=== PATIENT | female | born 1965 | race Two or more races ===

== ENCOUNTER → 2016-10-23 | Outpatient (CLI) | payer MEDICARE, OTHER ==
[2016-05-13 13:37] VITALS: BP 125/76
[~2016-10-23] MED LIST: ALBU1.25 NEB; ALBU8.5H8 INH; ASPI1TAB55 PO; AZIT250T6 PO; BENZ100C PO; BISM262O20 PO; CALC500T PO; CYAN10002 IM; FOLI1TAB16 PO; GUAI120L35 PO; HYDR-2758 PO; HYDR1TAB10 PO; LEVO5TAB2 PO; MONT10TA6 PO; MULT1TAB52 PO; NAPR500T3 PO; PROG100C15 PO; PROGESTERONE; PSEU120T58 PO; ROPI0.252 PO; SERT50TA PO; THYR60TA PO; VITA1TAB3 PO; losartan; ropinirole; testosterone inj; vitamin B-12
--- NOTE | 2016-10-23 12:27 | RAD ---
DATE: 10/23/2016 EXAM: MAMMO DARION JODI BILAT, BREAST BILATERAL HISTORY: Left breast lumps felt by the patient at the 3 to 5:00 position of the breast. COMPARISON: 11/17/2013 This study was interpreted with the benefit of Computerized Aided Detection (CAD). FINDINGS: Breast Density: DENSE The breast Parenchyma is dense, which could reduce the sensitivity of mammography. Breast parenchyma level density D.. The areas of concern in the left breast were marked. There is a well-defined density in the right breast at approximately the 7:00 position. It appears similar on the cc view compared to the previous exam. There is also probably similar in appearance on the MLO there are scattered benign-appearing calcifications in the breasts. A dominant clustered group of calcifications, warranting biopsy is not seen. A definite mass is not seen in the left breast corresponding to the marked areas of clinical concern. The extreme density of the breasts, however, could easily obscure a mass. Bilateral breast ultrasound was performed. The examination of the right breast was targeted to the 7:00 position where a well-defined mass was seen on mammography. There are multiple cysts at the 7:00 position. The largest measures approximately 9 mm in greatest dimension. A dominant suspect or suspicious soft tissue mass is not seen. Targeted ultrasound of the left breast was also performed the examination of the left breast was targeted to the areas where there was a palpable concern. Similar to the right breast several cysts are seen. The largest mass in the right breast measures approximately 1.6 cm. IMPRESSION: No dominant soft tissue mass is seen in either breast. There are several cysts seen in both breasts. Because of the extreme density in the breasts an MRI examination should be considered. If there is a discrete, palpable, mass in either breast biopsy may be warranted despite central unremarkable imaging. BI-RADS CATEGORY: 2 BENIGN FINDING(S) ultrasound mammographic features are benign. MRI should be considered. RECOMMENDED FOLLOW-UP: 12M 12 MONTH FOLLOW-UP. MRI prior to any follow-up mammographic imaging should be considered PQRS compliance statement: Patient information was entered into a reminder system with a target due date 10/23/2017. Prior to that date and MRI examination of the breasts is recommended for the next mammogram. Mammography is a sensitive method for finding small breast cancers, but it does not detect them all and is not a substitute for careful clinical examination. A negative mammogram does not negate a clinically suspicious finding and should not result in delay in biopsying a clinically suspicious abnormality. "Our facility is accredited by the [employer] Mammography Program."
== END | disposition home or self-care (01) ==
LOC: MAMMO 10:00
PROVIDERS: ATTEND Physician Assistant
DX: N63 Unspecified lump in breast (principal)
CPT/HCPCS: 76641; G0204; G0279; 77062; 77066

== ENCOUNTER → 2016-12-09 | Outpatient (CLI) | payer MEDICARE, OTHER ==
[2016-05-13 13:37] VITALS: BP 125/76
--- NOTE | 2016-12-09 16:07 | RAD ---
Indication pain. No history of injury. Internally and externally rotated views of both shoulders as well as Y views were obtained. Views of the left shoulder show no significant glenohumeral degenerative changes or before meals degenerative changes. There is some slight sclerosis of the humeral head. Osteonecrosis is not excluded. An acute finding is not seen. Healed left posterior fourth rib fracture is noted. Views of the right shoulder appear unremarkable. No bony abnormality is seen. IMPRESSION: Mild sclerotic changes involving the left humeral head. No acute finding seen involving either shoulder
== END | disposition home or self-care (01) ==
LOC: DXRAD 15:20
PROVIDERS: ATTEND Anesthesiology Pain Medicine
DX: M19.012 Primary osteoarthritis, left shoulder (principal)
CPT/HCPCS: 73030

== ENCOUNTER → 2017-08-03 | Outpatient (CLI) | payer MEDICARE, OTHER ==
[2016-05-13 13:37] VITALS: BP 125/76
[~2017-08-03] MED LIST changes: +NAPR-514 PO; -NAPR500T3 PO
--- NOTE | 2017-08-03 14:24 | CARD ---
MR#: [id number] Date of Study: 08/03/2017 Ordering Physician: YELENA MONTESINOS, Referring Physician: YELENA MONTESINOS, Tech: ASH Moulton APPROVED REPORT EXAM: Two-dimensional and M-mode echocardiogram with Doppler and color Doppler. Other Information Quality : Good INDICATION Pedal Edema 2D DIMENSIONS Left Atrium(2D)4.2 (1.6-4.0cm)IVSd1.0 (0.7-1.1cm) Aortic Root(2D)2.2 (2.0-3.7cm)LVDd4.3 (3.9-5.9cm) LVOT Diameter1.8 (1.8-2.4cm)PWd1.1 (0.7-1.1cm) LVDs3.1 (2.5-4.0cm)FS (%) 26.0 % SV46.0 mlLVEF(%)60.0 (>50%) Aortic Valve AoV Peak Jonathan.207.4cm/Chiquis Peak GR.17.2mmHg LVOT Peak Jonathan.84.0cm/sAVA (VMAX)1.07cm2 Tricuspid Valve TR P. Wamaqgof536qs/sRAP [id number] TR Peak Gr.01drGkHINP18imCt LEFT VENTRICLE The left ventricle is normal size. There is normal left ventricular wall thickness. The left ventricu lar systolic function is normal. The Ejection Fraction is 60-65%. There is normal LV segmental wall m otion. RIGHT VENTRICLE The right ventricle is normal size. There is normal right ventricular wall thickness. The right ventr icular systolic function is normal. ATRIA The left atrium is mildly dilated. The right atrium size is normal. There is a moderate to large PFO vs ASD. AORTIC VALVE The aortic valve is trileaflet. Doppler and Color Flow revealed no significant aortic regurgitation. There is no significant aortic valvular stenosis. MITRAL VALVE The mitral valve is normal in structure and function. There is no mitral valve stenosis. Doppler and Color-flow revealed trace to mild mitral regurgitation. TRICUSPID VALVE Doppler and Color Flow revealed mild to moderate tricuspid regurgitation. There is moderate pulmonary hypertension. The PASP is 56 mmHg. There is no tricuspid valve stenosis. PULMONIC VALVE The pulmonic valve is not well visualized. Doppler and Color Flow revealed no pulmonic valvular regur gitation. There is no pulmonic valvular stenosis. GREAT VESSELS The aortic root is normal in size. The IVC is normal in size and collapses >50% with inspiration. PERICARDIAL EFFUSION There is no pleural effusion. There is no evidence of significant pericardial effusion. Critical Notification Critical Value: No <Conclusion> The left ventricular systolic function is normal. The Ejection Fraction is 60-65%. There is normal LV segmental wall motion. Trace to mild mitral regurgitation. Mild to moderate tricuspid regurgitation. There is moderate pulmonary hypertension. The PASP is 56 mmHg. There is no evidence of significant pericardial effusion. Signed by : Isaiah Lozoya, Electronically Approved : 08/03/2017 14:23:30
== END | disposition home or self-care (01) ==
LOC: ECHO 12:46
PROVIDERS: ATTEND Physician Assistant
DX: R60.0 Localized edema (principal); I08.1 Rheumatic disorders of both mitral and tricuspid valves; I10 Essential (primary) hypertension; E03.9 Hypothyroidism, unspecified; E87.6 Hypokalemia; J32.9 Chronic sinusitis, unspecified; I27.20 Pulmonary hypertension, unspecified
CPT/HCPCS: 93306

== ENCOUNTER 2017-08-10 11:21 | Emergency (ER) | payer MEDICARE, OTHER ==
[~2017-08-10] VITALS: Ht 152.4 cm; Wt 49.9 kg
--- NOTE | 2017-08-10 12:02 | PHYS DOC ---
Past History Past Medical History: Anxiety, Asthma, Depression, Hypothyroid, Sickle Cell Disease, Other Past Surgical History: Cholecystectomy, , Oophorectomy, Tonsillectomy , Other Alcohol Use: None Drug Use: None Adult General Chief Complaint Chief Complaint: MECHANICAL FALL [facility] HPI She is a pleasant 51-year-old female with a known history of hypertension, prior sickle cell disease, depression, anxiety, anemia who presents with a mechanical fall from standing. Patient was walking down a flight of stairs when she noticed some sushant she was going to attend to when she lost her footing and slipped. There is a questionable loss of consciousness on the scene where she landed on her bottom grating and discomfort in her lower lower back her ribs bilaterally and the back of her head. Patient felt dizzy when she stood up quickly but she denied any focal focal numbness or tingling or weakness in her 70s. Patient denies any persistent headache although she has mild ache in the back of her neck over the C-spine. Patient denies any shortness of breath although it does hurt her chest wall to move over her ribs right greater than left. There is no obvious deformity oriented to the patient and no bruising that she noted. She said her main complaint is pain over her coccyx regions which is described as sharp and stabbing 8 of 10. She is not taking any medications for her pain but [facility]. She denies any bowel or bladder incontinence, denies any pain radiating to her bottom of her lower legs. Her pain is worse with range of motion sitting on her coccyx. Review of Systems Review of Systems Constitutional: Denies fever or chills [] Eyes: Denies change in visual acuity, redness, or eye pain [] HENT: Denies nasal congestion or sore throat [] Respiratory: Denies cough or shortness of breath [] Cardiovascular: No additional information not addressed in HPI [] GI: Denies abdominal pain, nausea, vomiting, bloody stools or diarrhea [] : Denies dysuria or hematuria [] Musculoskeletal: Positive for back pain positive for hip pain, positive for rib pain bilaterally over the lower ribs acid for neck pain Integument: Denies rash or skin lesions [] Neurologic: Mild posterior headache with no focal weakness or sensory changes. She has a complaint of mild dizziness with change in posture. Endocrine: Denies polyuria or polydipsia [] All other systems were reviewed and found to be within normal limits, except as documented in this note. Current Medications Current Medications Current Medications Medications (Trade) Dose Ordered Sig/Jovon Start Time Stop Time Status Last Admin Dose Admin Verapamil HCl (Verapamil HCl) 10 mg 1X ONCE 08/10/17 12:00 08/10/17 12:01 UNV Allergies Allergies Allergies Coded Allergies Type Severity Reaction Last Updated Verified fentanyl Adverse Reaction Severe SI 08/10/17 Yes Physical Exam Physical Exam Other vital signs recorded the chart patient noted to be orthostatic with an increase her heart rate and lower blood pressure with standing from a supine position. Patient was symptomatic during this transition. Constitutional: Well developed, well nourished, she is uncomfortable but in no acute distress.. [] HENT: Normocephalic, atraumatic, bilateral external ears normal, oropharynx moist, no oral exudates, nose normal. No obvious signs of scalp trauma, no hematoma no bleeding no evidence of skull fracture. Patient's TMs are clear bilaterally with no evidence of hemotympanum no evidence of basilar skull fracture.[] Eyes: PERRLA, EOMI, conjunctiva normal, no discharge. [] Neck: Normal range of motion, I'll tenderness over the lower C-spine C5 C6 C7 with nothing midline although there are some over her trapezius muscle there is no obvious signs of trauma no ecchymosis or soft tissue swelling., supple, no stridor. [] Cardiovascular:Heart rate regular rhythm, no murmur []she has chest wall tenderness over the lower ribs on the right specifically rib 9/10/11 greater on the right than the left with no obvious signs of crepitus no paroxysmal chest wall movement. Lungs & Thorax: Bilateral breath sounds clear to auscultation [] Abdomen: Bowel sounds normal, soft, no tenderness, no masses, no pulsatile masses. [] Skin: Warm, dry, no erythema, no rash. [] Back: tenderness to palpation over the coccyx region with no midline tenderness palpation over the L-spine except for L4-L5 there is some small ecchymosis noted on the gluteal region above the left gluteal cheek. Extremities: No tenderness, no cyanosis, no clubbing, ROM intact, no edema. [] Neurologic: Alert and oriented X 3, normal motor function, normal sensory function, no focal deficits noted. [] Psychologic: Affect normal, judgement normal, mood normal. [] EKG EKG [] Radiology/Procedures Radiology/Procedures [] [address] [address] IMAGING REPORT Signed PATIENT: JERRY OSBORNE ACCOUNT: [id number] : 1965 LOCATION: ER AGE: 51 SEX: F EXAM STATUS: REG ER ORD. PHYSICIAN: JOAN CERRATO MD REASON: fall PROCEDURE: CT HEAD AND CERVICAL SPINE WO CT head without intravenous contrast History: Fall down stairs today. Comparison: None. Technique: Axial images are obtained of the head from the skull base through the vertex without IV contrast. Exposure: One or more of the following individualized dose reduction techniques were utilized for this examination: 1. Automated exposure control 2. Adjustment of the mA and/or kV according to patient size 3. Use of iterative reconstruction technique Findings: The ventricles are appropriate in size, shape, and location for the patient's age. No obvious intracranial mass, mass-effect, midline shift, hemorrhage or obvious acute infarction is identified. Basilar cisterns are patent. Bone windows demonstrate no acute calvarial abnormality. The visualized paranasal sinuses appear clear. Impression: 1. No acute intracranial process. CT cervical spine Comparison: None. Technique: Noncontrast CT of the cervical spine was performed using helical technique. Axial, sagittal, coronal reconstructions were obtained. Exposure: One or more of the following individualized dose reduction techniques were utilized for this examination: 1. Automated exposure control 2. Adjustment of the mA and/or kV according to patient size 3. Use of iterative reconstruction technique Findings: There is no evidence of acute fracture or acute malalignment involving the cervical spine. No prevertebral soft tissue swelling is identified. Mild multilevel degeneration is seen. There are increased numbers of bilateral neck lymph nodes with the largest lymph node measuring 0.8 cm in short axis, not definitely pathologic by CT criteria. Impression: 1. No evidence of acute traumatic injury involving the cervical spine. 2. Increased numbers of bilateral neck lymph nodes. Recommend clinical correlation. Electronically signed by: Shaheed Thompson MD (08/10/2017 12:37 PM) [facility] DICTATED AND SIGNED BY: SHAHEED THOMPSON MD DATE: 08/10/17 1232 CC: JOAN CERRATO MD; YELENA MONTESINOS ~ [address] [address] IMAGING REPORT Signed PATIENT: JERRY OSBORNE ACCOUNT: [id number] : 1965 LOCATION: ER AGE: 51 SEX: F EXAM STATUS: REG ER ORD. PHYSICIAN: JOAN CERRATO MD REASON: fall PROCEDURE: CT LUMBAR SPINE WO CONTRAST CT of the lumbar spine without contrast 08/10/2017 Indication: Fall downstairs Comparison study: CT of the abdomen and pelvis February 02, 2013 Technique: Multidetector CT imaging of the lumbar spine without the administration of intravenous contrast. Findings: No evidence of acute fracture or alignment abnormality is identified. Chronic compression deformities of the L3, L4, and L5 vertebral bodies noted. Superior endplate compression deformity of the S1 vertebra also seen. The appearance however similar comparison CT of the abdomen and pelvis from February 19, 2013. There appears to be diffuse severe osteopenia which is similar to comparison study. No bony encroachment of the spinal canal is identified. Facet joints are aligned. No spondylolysis or significant spondylolisthesis is identified. Mild posterior disc bulges are seen at L3-L4, L4-L5, and L5-S1. No overt neural foraminal stenosis is appreciated by CT. No acute soft tissue changes are identified. Impression: 1. No evidence of acute fracture or alignment abnormality is identified 2. Similar appearance of 3 chronic compression deformities involving L3, L4, and L5 3. Osteopenia. Consider follow-up bone densitometry 4. Mild degenerative changes of the lumbar spine as described. DICTATED AND SIGNED BY: YASMIN KHOURY MD DATE: 08/10/17 1241 CC: JOAN CERRATO MD; YELENA MONTESINOS ~ [address] [address] IMAGING REPORT Signed PATIENT: JERRY OSBORNE ACCOUNT: [id number] : 1965 LOCATION: ER AGE: 51 SEX: F EXAM STATUS: REG ER ORD. PHYSICIAN: JOAN CERRATO MD REASON: fall PROCEDURE: RIBS BILAT & PA CXR 4+V Rib series including frontal chest radiograph and 2 views of each hemithorax 08/10/2017 Indication: Fall, pain. Comparison study: 2 views of the chest May 13, 2016 Findings: The heart is mildly enlarged but stable. No pneumothorax or pleural effusion is identified. Right basilar scarring with blunting of the hemidiaphragm is stable. No acute or displaced rib fractures are identified. Chronic deformity of the left fourth rib noted. No new focal infiltrate is seen. Inferior thoracic compression deformities are stable Impression: No evidence of acute cardiopulmonary process. No radiographic evidence of an acute rib fracture is identified DICTATED AND SIGNED BY: YASMIN KHOURY MD DATE: 08/10/17 1249 CC: JOAN CERRATO MD; YELENA MONTESINOS ~ Course & Med Decision Making Course & Med Decision Making Pertinent Labs and Imaging studies reviewed. (See chart for details) []She is a pleasant 51-year-old female with a known history of sickle cell disease who had a mechanical fall from standing injuring her lower back/coccyx regions and her ribs bilaterally. She was given pain medications to facilitate exam as well as x-rays. Patient's CT scans of her lumbar spine cervical spine and head were read by radiology reviewed by me the only injury notified was a chronic series of small compression fracture of L3 L4 L5 which is not new. Patient's rib series reviewed by me read by radiology deficits no acute pulmonary contusion or fracture is noted by x-ray. There is no pneumomediastinum or pneumothorax. Patient sustained a coccyx bruise and rib contusions but no broken bones. I will provide her pain medications and encouraged follow-up with her primary care doctor doubt with her symptoms. I will refer her back to her primary care doctor to have her talk with Linn octavio about possible kyphoplasty if her chronic lower back pain presently gets worse with the noted chronic compression fractures of L3-L5 Impression: Fall from standing coccyx contusion, bilateral rib contusions, compression fractures of L3-L5 chronic in nature discharge: I've spoken with the patient and/or caregivers. I've explained the patient's condition, diagnosis and treatment plan based on information available to me at this time. I've answered the patient's and/or caregivers questions and addressed any concerns. The patient and/or caregivers have a good understanding the patient's diagnosis, condition and treatment plan as can be expected at this point. Vital signs have been stabilized. The patient's condition is stable for discharge from the emergency department. The patient will pursue further outpatient evaluation with her primary care provider or other designated consulting physician as outlined in the discharge instructions. Patient and/or caregivers are agreeable to this plan of care and follow-up instructions have been explained in detail. The patient and/or caregivers have received these instructions in written format and expressed understanding of these discharge instructions. The patient and her caregivers are aware that if any significant change in condition or worsening of symptoms should prompt him to immediately return to this of the closest emergency department. If an emergent department is not readily available I would encourage him to call 911. Dragon Disclaimer Dragon Disclaimer This electronic medical record was generated, in whole or in part, using a voice recognition dictation system. Departure Departure: Impression: Primary Impression: Chronic pain Additional Impressions: Coccyx contusion Rib contusion Compression fracture Disposition: HOME, SELF-CARE Condition: STABLE Referrals: YELENA MONTESINOS (PCP) Patient Instructions: Back, Compression Fracture, Chest Contusion, Contusion, Quadriceps Contusion, [id number] Additional Instructions: discharge: I've spoken with the patient and/or caregivers. I've explained the patient's condition, diagnosis and treatment plan based on information available to me at this time. I've answered the patient's and/or caregivers questions and addressed any concerns. The patient and/or caregivers have a good understanding the patient's diagnosis, condition and treatment plan as can be expected at this point. Vital signs have been stabilized. The patient's condition is stable for discharge from the emergency department. The patient will pursue further outpatient evaluation with her primary care provider or other designated consulting physician as outlined in the discharge instructions. Patient and/or caregivers are agreeable to this plan of care and follow-up instructions have been explained in detail. The patient and/or caregivers have received these instructions in written format and expressed understanding of these discharge instructions. The patient and her caregivers are aware that if any significant change in condition or worsening of symptoms should prompt him to immediately return to this of the closest emergency department. If an emergent department is not readily available I would encourage him to call 911. Scripts Hydrocodone Bit/Acetaminophen (HYDROCODONE-APAP 5-325 ) 1 Each Tablet 1 TAB PO PRN Q6HRS Y for PAIN for 3 Days, #12 TAB 0 Refills Prov: JOAN CERRATO MD 08/10/17 Problem Qualifiers JOAN CERRATO MD Aug 10, 2017 12:02
[2017-08-10] MEDS ORDERED: VERAPAMIL 5 MG/2 ML VIAL. IV ONE (12:30)
[2017-08-10] MEDS: HYDROcodone/APAP 5/325MG 1 TAB TABLET PO ONE (12:31)
--- NOTE | 2017-08-10 12:40 | RAD ---
CT head without intravenous contrast History: Fall down stairs today. Comparison: None. Technique: Axial images are obtained of the head from the skull base through the vertex without IV contrast. Exposure: One or more of the following individualized dose reduction techniques were utilized for this examination: 1. Automated exposure control 2. Adjustment of the mA and/or kV according to patient size 3. Use of iterative reconstruction technique Findings: The ventricles are appropriate in size, shape, and location for the patient's age. No obvious intracranial mass, mass-effect, midline shift, hemorrhage or obvious acute infarction is identified. Basilar cisterns are patent. Bone windows demonstrate no acute calvarial abnormality. The visualized paranasal sinuses appear clear. Impression: 1. No acute intracranial process. CT cervical spine Comparison: None. Technique: Noncontrast CT of the cervical spine was performed using helical technique. Axial, sagittal, coronal reconstructions were obtained. Exposure: One or more of the following individualized dose reduction techniques were utilized for this examination: 1. Automated exposure control 2. Adjustment of the mA and/or kV according to patient size 3. Use of iterative reconstruction technique Findings: There is no evidence of acute fracture or acute malalignment involving the cervical spine. No prevertebral soft tissue swelling is identified. Mild multilevel degeneration is seen. There are increased numbers of bilateral neck lymph nodes with the largest lymph node measuring 0.8 cm in short axis, not definitely pathologic by CT criteria. Impression: 1. No evidence of acute traumatic injury involving the cervical spine. 2. Increased numbers of bilateral neck lymph nodes. Recommend clinical correlation. Electronically signed by: Shaheed Harry MD (08/10/2017 12:37 PM) [facility]
--- NOTE | 2017-08-10 12:48 | RAD ---
CT of the lumbar spine without contrast 08/10/2017 Indication: Fall downstairs Comparison study: CT of the abdomen and pelvis February 02, 2013 Technique: Multidetector CT imaging of the lumbar spine without the administration of intravenous contrast. Findings: No evidence of acute fracture or alignment abnormality is identified. Chronic compression deformities of the L3, L4, and L5 vertebral bodies noted. Superior endplate compression deformity of the S1 vertebra also seen. The appearance however similar comparison CT of the abdomen and pelvis from February 19, 2013. There appears to be diffuse severe osteopenia which is similar to comparison study. No bony encroachment of the spinal canal is identified. Facet joints are aligned. No spondylolysis or significant spondylolisthesis is identified. Mild posterior disc bulges are seen at L3-L4, L4-L5, and L5-S1. No overt neural foraminal stenosis is appreciated by CT. No acute soft tissue changes are identified. Impression: 1. No evidence of acute fracture or alignment abnormality is identified 2. Similar appearance of 3 chronic compression deformities involving L3, L4, and L5 3. Osteopenia. Consider follow-up bone densitometry 4. Mild degenerative changes of the lumbar spine as described.
--- NOTE | 2017-08-10 12:53 | RAD ---
Rib series including frontal chest radiograph and 2 views of each hemithorax 08/10/2017 Indication: Fall, pain. Comparison study: 2 views of the chest May 13, 2016 Findings: The heart is mildly enlarged but stable. No pneumothorax or pleural effusion is identified. Right basilar scarring with blunting of the hemidiaphragm is stable. No acute or displaced rib fractures are identified. Chronic deformity of the left fourth rib noted. No new focal infiltrate is seen. Inferior thoracic compression deformities are stable Impression: No evidence of acute cardiopulmonary process. No radiographic evidence of an acute rib fracture is identified
[2017-08-10] MEDS ORDERED: HYDR-2758 PO (13:02)
[2017-08-10 13:16] VITALS: BP 129/76
== END 2017-08-10 13:16 | disposition home or self-care (01) ==
LOC: ER 11:21
DX: S32.038A Other fracture of third lumbar vertebra, initial encounter for closed fracture (principal); S32.048A Other fracture of fourth lumbar vertebra, initial encounter for closed fracture; S32.058A Other fracture of fifth lumbar vertebra, initial encounter for closed fracture; S30.0XXA Contusion of lower back and pelvis, initial encounter; S20.212A Contusion of left front wall of thorax, initial encounter; S20.211A Contusion of right front wall of thorax, initial encounter; J45.909 Unspecified asthma, uncomplicated; I10 Essential (primary) hypertension; G89.29 Other chronic pain; F41.9 Anxiety disorder, unspecified; F32.9 Major depressive disorder, single episode, unspecified; E03.9 Hypothyroidism, unspecified; Z86.73 Personal history of transient ischemic attack (TIA), and cerebral infarction without residual deficits; Z88.8 Allergy status to other drugs, medicaments and biological substances; W10.8XXA Fall (on) (from) other stairs and steps, initial encounter; Y93.89 Activity, other specified; Y99.8 Other external cause status; Y92.813 Airplane as the place of occurrence of the external cause
CPT/HCPCS: 70450; 71111; 72125; 72131; 99284-25

== ENCOUNTER → 2017-08-13 | Outpatient (CLI) | payer MEDICARE, OTHER ==
[2017-08-10 13:16] VITALS: BP 129/76
[~2017-08-13] MED LIST changes: +BUPIVACAINE MPF 0.25% 10 ML VIAL. ONE
== END | disposition home or self-care (01) ==
LOC: SURG 10:05
PROVIDERS: ATTEND Anesthesiology Pain Medicine
DX: M79.1 Myalgia (principal); I27.20 Pulmonary hypertension, unspecified; Z98.890 Other specified postprocedural states
CPT/HCPCS: 20553; J3490

== ENCOUNTER → 2017-09-10 | Outpatient (CLI) | payer MEDICARE, OTHER ==
[~2017-09-10] MED LIST changes: +LIDOCAINE 1% PF 30 ML VIAL. ONE; +methylPREDNISolone ACETATE 40 MG/ML VIAL. ONE
== END | disposition home or self-care (01) ==
LOC: SURG 10:07
PROVIDERS: ATTEND Anesthesiology Pain Medicine
DX: M79.1 Myalgia (principal); D64.9 Anemia, unspecified; I27.20 Pulmonary hypertension, unspecified; E03.9 Hypothyroidism, unspecified; F32.9 Major depressive disorder, single episode, unspecified; I10 Essential (primary) hypertension; Z88.8 Allergy status to other drugs, medicaments and biological substances; Z98.890 Other specified postprocedural states; Z79.82 Long term (current) use of aspirin
CPT/HCPCS: 20553; J1030; J2001; J3490

== ENCOUNTER → 2017-10-22 | Outpatient (CLI) | payer MEDICARE, OTHER ==
[~2017-10-22] MED LIST changes: -BUPIVACAINE MPF 0.25% 10 ML VIAL. ONE; +IOHEXOL 300 MG/ML 75 ML VIAL. IV ONE; -LIDOCAINE 1% PF 30 ML VIAL. ONE; -methylPREDNISolone ACETATE 40 MG/ML VIAL. ONE
--- NOTE | 2017-10-22 13:11 | RAD ---
EXAM: CT angiography of the chest with intravenous contrast. HISTORY: Pulmonary artery hypertension. TECHNIQUE: Computed tomographic images of the chest were obtained following the administration of 75 cc Omnipaque 300 intravenous contrast according to angiography protocol. Multiplanar reformatting was performed and 3-dimensional maximum intensity projection images were obtained. *One or more of the following individualized dose reduction techniques were utilized for this examination: 1. Automated exposure control. 2. Adjustment of the mA and/or kV according to patient size. 3. Use of iterative reconstruction technique. COMPARISON: None. FINDINGS: There is mild to moderate cardiomegaly. There is a trace pericardial effusion or slight pericardial thickening. The aorta is normal in caliber and demonstrates a normal branching pattern. There are enlarged central pulmonary vessels suggesting a component of chronic pulmonary artery hypertension. No pulmonary embolism is seen. There is increased soft tissue within the anterior mediastinum, possibly due to thymic rebound/hyperplasia. There is bilateral supraclavicular and axillary lymphadenopathy. For reference purposes, there is a right axillary lymph node measuring 1.4 cm in long axis. No pathologically enlarged mediastinal or hilar lymph node is seen. There is no pneumothorax or pleural effusion. There is minimal bilateral posterior dependent and basilar atelectasis. There is no infiltrate or suspicious pulmonary nodule. There is mild hepatomegaly. The spleen is absent. There are few small soft tissue nodules within the left upper quadrant which appears separate from the pancreas, possibly due to a splenules. There is slight nodular thickening of the left adrenal gland. There are degenerative changes within the spine. There are multiple chronic compression fractures and endplate depressions throughout the thoracic spine. There is suspected bone demineralization. There is angulation of the sternum which is likely developmental rather than due to a healed fracture. IMPRESSION: 1. Enlarged central pulmonary vessels suggesting a component of chronic pulmonary artery hypertension. This is not significantly changed compared to the prior study. 2. Cardiomegaly with trace pericardial effusion or pericardial thickening, also stable in appearance. 3. Supraclavicular and axillary lymphadenopathy. Similar to slightly increased compared to the prior study. The possibility of an underlying neoplasm such as lymphoma is not excluded. 4. Stable prominent soft tissue within the anterior mediastinum. This may be due to lymphatic tissue or thymic hyperplasia/rebound. 5. Hepatomegaly. 6. Multiple chronic vertebral compression fractures and endplate depressions. Correlate for bone demineralization or renal osteodystrophy. Electronically signed by: Ryann Santos MD (10/22/2017 1:07 PM) [place] [id number]
== END | disposition home or self-care (01) ==
LOC: CT 08:37
PROVIDERS: ATTEND Internal Medicine Critical Care Medicine
DX: I27.20 Pulmonary hypertension, unspecified (principal); I51.7 Cardiomegaly; M84.48XD Pathological fracture, other site, subsequent encounter for fracture with routine healing; E03.9 Hypothyroidism, unspecified; I10 Essential (primary) hypertension; R16.0 Hepatomegaly, not elsewhere classified
CPT/HCPCS: 71275; Q9967

== ENCOUNTER → 2017-12-08 | Outpatient (CLI) | payer MEDICARE, OTHER ==
[~2017-12-08] MED LIST changes: -IOHEXOL 300 MG/ML 75 ML VIAL. IV ONE
--- NOTE | 2017-12-21 09:08 | RAD ---
DATE: 12/08/2017 EXAM: MAMMO DARION SCREENING BILATERAL HISTORY: Routine screening COMPARISON: 10/23/2016 This study was interpreted with the benefit of Computerized Aided Detection (CAD). The breast parenchyma is dense, which could reduce the sensitivity of mammography. Breast parenchyma level density D. FINDINGS: 2-D and 3-D tomosynthesis imaging was performed in CC and MLO projections. The breast tissues are extremely dense and heterogeneous. There is an unchanged small lymph node type density in the lateral aspect of the right breast. Previous ultrasound examination demonstrated bilateral breast cysts. No new or enlarging breast densities are seen. There are numerous microcalcifications in both breasts with the distribution suggesting a benign etiology such as sclerosing adenosis. No suspicious microcalcifications are evident. IMPRESSION: 1. Extremely dense heterogeneous breasts. 2. Stable mammograms without evidence of malignancy. BI-RADS CATEGORY: 2 BENIGN FINDING(S) RECOMMENDED FOLLOW-UP: 12M 12 MONTH FOLLOW-UP PQRS compliance statement: Patient information was entered into a reminder system with a target due date for the next mammogram. Mammography is a sensitive method for finding small breast cancers, but it does not detect them all and is not a substitute for careful clinical examination. A negative mammogram does not negate a clinically suspicious finding and should not result in delay in biopsying a clinically suspicious abnormality. "Our facility is accredited by the [employer] Mammography Program."
== END | disposition home or self-care (01) ==
LOC: MAMMO 15:11 → MERGE 15:11
PROVIDERS: ATTEND Physician Assistant
DX: Z12.31 Encounter for screening mammogram for malignant neoplasm of breast (principal); I10 Essential (primary) hypertension; E03.9 Hypothyroidism, unspecified; E87.6 Hypokalemia; Z90.49 Acquired absence of other specified parts of digestive tract; Z90.89 Acquired absence of other organs; Z79.82 Long term (current) use of aspirin; Z86.2 Personal history of diseases of the blood and blood-forming organs and certain disorders involving the immune mechanism
CPT/HCPCS: 77063; 77067

== ENCOUNTER → 2018-03-18 | Outpatient (CLI) | payer MEDICARE, OTHER ==
[~2018-03-18] MED LIST changes: -ROPI0.252 PO; +ROPI0.254 PO
--- NOTE | 2018-03-18 17:41 | RAD ---
CT CHEST WO CONTRAST Indication: PULMONARY HYPERTENSION Exposure: One or more of the following individualized dose reduction techniques were utilized for this examination: 1. Automated exposure control 2. Adjustment of the mA and/or kV according to patient size 3. Use of iterative reconstruction technique. Comparison: Contrast enhanced exam of October 22, 2017 Contrast: None FINDINGS: Vascular structures: Limited exam without contrast. No evidence of thoracic aortic aneurysm. Mild enlargement of the main central pulmonary arteries, unchanged. Lymph nodes: Enlarged axillary lymph nodes are again identified bilaterally. One of the right axillary lymph nodes measures 10 mm short axis compared with 11 mm on prior study. One of the left axillary lymph nodes measures 11 mm short axis, compared with 11 mm on prior study. Mildly enlarged supraclavicular lymph nodes appears stable. Mild tissue in the anterior mediastinum has not progressed. Thyroid gland:Visualized aspect is unremarkable. Heart: Mild pericardial effusion, probably unchanged since prior study. There appears to be a slightly different distribution of fluid but the overall amount is probably similar. Esophagus: Unremarkable Pleural spaces: No significant effusion Lungs: No dominant airspace consolidation or large mass. Trachea and central airways: Patent Spine: Multiple central endplate compression fracture deformities of the thoracic spine are stable since the previous examination. Bones: Generalized bone demineralization. This likely accounts for a heterogeneous appearance of skeletal structures diffusely. If the patient has a history of primary malignancy, consider bone scan, however, to exclude metastatic process. Breasts are very dense bilaterally. Upper abdomen: Slices obtained through the upper most abdomen are limited by the noncontrast technique. No obvious acute findings. Impression: 1. Enlargement of axillary and supraclavicular lymph nodes, overall similar to the previous examination. 2. Small pericardial effusion, slightly different distribution but probably overall roughly similar in quantity. 3. Multiple thoracic vertebral body compression fractures appears similar. 3. Dilatation of the central pulmonary arteries appears similar. 4. Heterogeneous bone density pattern throughout, may be due to demineralization. If patient has a primary malignancy, consider bone scan to better evaluate for possible metastatic lesions. Electronically signed by: Shaheed Michael MD (03/18/2018 5:37 PM) [facility]
== END | disposition home or self-care (01) ==
LOC: CT 15:13
PROVIDERS: ATTEND Internal Medicine Critical Care Medicine
DX: I31.3 Pericardial effusion (noninflammatory) (principal); M81.8 Other osteoporosis without current pathological fracture; R59.0 Localized enlarged lymph nodes
CPT/HCPCS: 71250

== ENCOUNTER → 2018-04-01 | Outpatient (CLI) | payer MEDICARE, OTHER ==
[~2018-04-01] MED LIST changes: +BUPIVACAINE MPF 0.25% 30 ML VIAL. ONE; +HYDR-2155 PO; -HYDR-2758 PO; +methylPREDNISolone ACETATE 40 MG/ML VIAL. ONE
== END | disposition home or self-care (01) ==
LOC: SURG 11:31
PROVIDERS: ATTEND Anesthesiology Pain Medicine
DX: M79.18 Myalgia, other site (principal); M54.12 Radiculopathy, cervical region; G43.709 Chronic migraine without aura, not intractable, without status migrainosus; E03.9 Hypothyroidism, unspecified; D57.80 Other sickle-cell disorders without crisis; I27.20 Pulmonary hypertension, unspecified; G89.29 Other chronic pain; Z79.899 Other long term (current) drug therapy
CPT/HCPCS: 20553; J1030; J3490

== ENCOUNTER → 2019-01-05 | Outpatient (CLI) | payer MEDICARE ==
[~2019-01-05] MED LIST changes: +ALBU2.5V8 INH; -ALBU8.5H8 INH; +BUPIVACAINE MPF 0.25% 10 ML VIAL. ONE; -BUPIVACAINE MPF 0.25% 30 ML VIAL. ONE; -CALC500T PO; +CALC500T31 PO; +CORICIDIN; +CYCL5TAB PO; +FUROSIMIDE; +GABAPENTIN; +IBUP400T18 PO; +LEVO50TA5 PO; +LIDOCAINE 1% PF 30 ML VIAL. ONE; +LORA10TA68 PO; -MONT10TA6 PO; +MONT10TA80 PO; +SILDENAFIL; +ZOLOFT; -methylPREDNISolone ACETATE 40 MG/ML VIAL. ONE
[2019-01-05 13:02] VITALS: BP 134/87
== END ==
LOC: SURG 11:00
PROVIDERS: ATTEND Anesthesiology Pain Medicine
DX: M79.18 Myalgia, other site (principal); D64.9 Anemia, unspecified; Z85.9 Personal history of malignant neoplasm, unspecified; Z87.39 Personal history of other diseases of the musculoskeletal system and connective tissue
CPT/HCPCS: 20552; J2001; J3490

== ENCOUNTER → 2019-11-02 | Outpatient (CLI) | payer MEDICARE ==
[2019-01-05 13:02] VITALS: BP 134/87
[~2019-11-02] MED LIST changes: -BUPIVACAINE MPF 0.25% 10 ML VIAL. ONE; -LIDOCAINE 1% PF 30 ML VIAL. ONE; +MULT-445 PO; -MULT1TAB52 PO
--- NOTE | 2019-11-02 16:39 | RAD ---
BILATERAL SCREENING MAMMOGRAM, 3-D History: Routine screening. Comparison: 11/17/2013, 10/23/2016, 12/08/2017. Technique: MLO and CC digital tomosynthesis (3D) images obtained. Radiologist reviewed these images on dedicated workstation. Findings: Breast Tissue Density D :The breasts are extremely dense, which lowers the sensitivity of mammography. Asymmetry involving the right outer CC view is evident. This probably represents summation of breast parenchyma compared to older prior exams but it is more evident as compared to 12/08/2017. Left breast ulcerations are present similar to the prior exam. No distortion identified. IMPRESSION: Spot compression imaging of the right outer breast is recommended. Repeat right CC view is recommended as motion is also seen limiting assessment. Repeat right MLO view is recommended due to motion at the upper breast level. Ultrasound may be needed. BI-RADS Category 0: Incomplete: Need additional imaging evaluation. The images were reviewed with computer-aided detection. Patient information is entered into reminder system with a target due date for the next screening mammogram. Mammography is the most sensitive method for finding small breast cancers, but it does not detect them all and is not a substitute for careful clinical examination. A negative mammogram does not negate a clinically suspicious finding and should not result in delay in biopsying a clinically suspicious abnormality. "Our facility is accredited by the [employer] Mammography Program." Electronically signed by: Jose Luis Archibald MD (11/02/2019 4:35 PM) [facility]
== END | disposition home or self-care (01) ==
LOC: MAMMO 10:07
PROVIDERS: ATTEND Physician Assistant
DX: Z12.31 Encounter for screening mammogram for malignant neoplasm of breast (principal)
CPT/HCPCS: 77063; 77067

== ENCOUNTER → 2019-11-16 | Outpatient (CLI) | payer MEDICARE ==
[2019-01-05 13:02] VITALS: BP 134/87
--- NOTE | 2019-11-16 13:48 | RAD ---
CLINICAL INDICATION: JERRY FOX, who is 54 years of age, presents for further evaluation of a finding noted on her most recent screening mammographic examination. On that examination an asymmetry was reported within the right breast COMPARISON: Prior mammographic imaging 11/02/2019, 10/23/2016 TECHNIQUE: Diagnostic views of the right breast were obtained, utilizing digital technique. BREAST COMPOSITION: The breasts are extremely dense. This may lower the sensitivity of mammography. MAMMOGRAM FINDINGS: On the spot compression views, the asymmetry in the right breast was not definitively seen. Therefore ultrasound was performed. ULTRASOUND FINDINGS: Targeted ultrasound of the mammographic area of concern was performed. At the 8:00 position, 4.5 cm the nipple, 9:00 position 5 cm the nipple anechoic avascular masses of circumscribed margins and round/oval shape is present.. Demonstrates posterior acoustic enhancement and a parallel orientation. In addition at the 11:00 position 3.5 cm from the nipple an anechoic avascular structure measuring 0.6 cm with small echogenic reflectors and enhanced through transmission is seen. IMPRESSION: 1. No mammographic evidence of malignancy in either breast. RECOMMENDATION: In the absence of new clinical symptoms or change in physical exam, annual screening mammography is recommended BIRADS 2: BENIGN This study was interpreted with the benefit of Computerized Aided Detection (CAD). ?Your patient's mammogram demonstrates that she has dense breast tissue (breast density category C or D), which could hide abnormalities, and if she has other risk factors for breast cancer that have been identified, she might benefit from supplemental screening tests that may be suggested by you as her ordering physician. Dense breast tissue, in and of itself, is a relatively common condition. Therefore, this information is not provided to cause undue concern, but rather to raise your awareness and to promote discussion with your patient regarding the presence of other risk factors, in addition to dense breast tissue. Your patient's mammography results will be sent to her. Patient information is entered into the reminder system with a target due date for the next screening mammogram. Mammography is the most sensitive method for finding small breast cancers, but it does not detect them all and is not a substitute for careful clinical examination. A negative mammogram does not negate a clinically suspicious finding and should not result in delay in biopsying a clinically suspicious abnormality. "Our facility is accredited by the [employer] Mammography Program." Electronically signed by: Eugenio Mauricio MD (11/16/2019 1:46 PM) [facility]
== END | disposition home or self-care (01) ==
LOC: MAMMO 12:32
PROVIDERS: ATTEND Physician Assistant
DX: R92.2 Inconclusive mammogram (principal)
CPT/HCPCS: 76641; 77065

== ENCOUNTER 2020-01-20 13:34 | Emergency (ER) | payer MEDICARE ==
[~2020-01-20] VITALS: Ht 152.4 cm; Wt 51.6 kg
--- NOTE | 2020-01-20 14:01 | PHYS DOC ---
Past History Past Medical History: Hypothyroid, Sickle Cell Disease, Other Past Surgical History: Cholecystectomy, , Oophorectomy, Tonsillectomy, Other Alcohol Use: None Drug Use: None General Adult EDM: Chief Complaint: CHEST PAIN HPI: HPI: 54-year-old female past medical history significant for sickle cell disease, leukemia, hypertension, pulmonary hypertension, hypothyroidism, asthma, anxiety/depression, and chronic lymphocytic leukemia x2yrs (left axillary LN biopsy), presents the ED with complaints of right sided headache for the past 4 days with associated nausea, productive cough and posterior right neck pain/tight muscles, some relief with motrin. States she took her blood pressure yesterday and it was 186/97, took 2 tablets of propanol for her headache. BP meds stopped a few years ago. States she got overwhelmed last night because of her BP and reports bilateral upper chest pressure stating "my muscles started cramping up." Currently c/o headache, neck pain, and chest "muscle" pain. H/o PNA 2 years ago - no h/o acute chest syndrome w/plasmapheresis. No h/o IC aneurysms. No hospitalizations of sickle cell crisis in the past year, compliant with hydroxyurea. Review of Systems: Review of Systems: Constitutional: Denies fever or chills Eyes: Denies change in visual acuity HENT: Denies nasal congestion or sore throat Respiratory: Denies hemoptysis or shortness of breath Cardiovascular: Denies syncope, tearing/ripping chest pain or edema GI: Denies abdominal pain, vomiting, bloody stools or diarrhea : Denies dysuria, hematuria Musculoskeletal: Denies back pain or joint pain Integument: Denies rash Neurologic: Denies neck stiffness or focal weakness or sensory changes Endocrine: Denies polyuria or polydipsia Lymphatic: Denies any new swollen glands Psychiatric: Denies depression or anxiety Heart Score: HEART Score for Chest Pain: HEART Score for Chest Pain Response (Comments) Value History Slighlty/Non-Suspicious 0 ECG Normal 0 Age >45 - < 65 1 Risk Factors 1 or 2 Risk Factors 1 Total 2 Risk Factors: Risk Factors: DM, Current or recent (<one month) smoker, HTN, HLP, family history of CAD, obesity. Risk Scores: Score 0 - 3: 2.5% MACE over next 6 weeks - Discharge Home Score 4 - 6: 20.3% MACE over next 6 weeks - Admit for Clinical Observation Score 7 - 10: 72.7% MACE over next 6 weeks - Early Invasive Strategies Allergies: Allergies: Allergies Coded Allergies Type Severity Reaction Last Updated Verified fentanyl Adverse Reaction Severe SI 01/05/19 Yes Physical Exam: PE: Constitutional: Well developed, well nourished, no acute distress, non-toxic appearance, 138/-, 163/85 HENT: Normocephalic, atraumatic, bilateral external ears normal, oropharynx moist, no oral exudates, nose normal, Eyes: PERRLA, EOMI, conjunctiva normal, no discharge. [] Neck: Normal range of motion, +right trrapezuys muscle ttp/ropiness with small known nodule, supple, no stridor, no nuchal rigidity or stiffness Cardiovascular:Heart rate regular rhythm, no murmur [] Lungs & Thorax: Bilateral breath sounds clear to auscultation [] Abdomen: Bowel sounds normal, soft, no tenderness, no masses, no pulsatile masses. [] Skin: Warm, dry, no erythema, no rash. [] Back: No tenderness, no CVA tenderness. [] Extremities: No tenderness, no cyanosis, no clubbing, ROM intact, no edema. [] Neurologic: Alert and oriented X 3, normal motor function, normal sensory function, no focal deficits noted. CN 2-12 intact Psychologic: Affect normal, judgement normal, mood normal. [] EKG: EKG: Sinus rhythm 85 bpm, no axis deviation, normal intervals, no T wave inversions, no ST elevations or ST depressions, no pathologic Q waves Radiology/Procedures: Radiology/Procedures: []IMAGING REPORT Signed PATIENT: JERRY FOX ACCOUNT: [id number] : 1965 LOCATION: ER AGE: 54 SEX: F EXAM STATUS: REG ER ORD. PHYSICIAN: BOLA ALTAMIRANO DO REASON: HEADACHE PROCEDURE: CT HEAD WO CONTRAST T brain without contrast. HISTORY: Headache CT brain was done without contrast. Comparison is made with a study from August 2009. Sinuses are clear. There is no intracranial hemorrhage or subdural hematoma. Lateral ventricles are normal in size. There is no mass or shift of the midline. An acute CVA is not identified. IMPRESSION: 1. No intracranial hemorrhage or acute finding noted. PQRS Compliance Statement: One or more of the following individualized dose reduction techniques were utilized for this examination: 1. Automated exposure control 2. Adjustment of the mA and/or kV according to patient size 3. Use of iterative reconstruction technique Electronically signed by: Jonathan Sosa MD (01/20/2020 3:47 PM) [id number] DICTATED AND SIGNED BY: JONATHAN SOSA MD DATE: 01/20/20 1547 CC: YELENA MONTESINOS; BOLA ALTAMIRANO DO ~ IMAGING REPORT Signed PATIENT: JERRY FOX ACCOUNT: [id number] : 1965 LOCATION: ER AGE: 54 SEX: F EXAM STATUS: REG ER ORD. PHYSICIAN: BOLA ALTAMIRANO DO REASON: chest pain PROCEDURE: PORTABLE CHEST 1V AP chest. HISTORY: Chest pain AP view was taken of the chest. There is sclerosis of the humeral head on the left, this pattern can be seen with ischemic necrosis and was present on an old study. Heart is upper normal in size. There is chronic blunting of the right costophrenic angle unchanged from an old study from 2017. There are no acute infiltrates. There is an old left rib fracture. IMPRESSION: 1. No acute infiltrates. Electronically signed by: Jonathan Sosa MD (01/20/2020 3:10 PM) [id number] DICTATED AND SIGNED BY: JONATHAN SOSA MD DATE: 01/20/20 1510 CC: YELENA MONTESINOS; BOLA ALTAMIRANO DO ~ Course & Med Decision Making: Course & Med Decision Making Pertinent Labs and Imaging studies reviewed. (See chart for details) Concern for tension headache with right-sided torticollis, in the setting of anxiety over her elevated blood pressure. Chest pain is very atypical, heart score 2. Now asymptomatic and requesting to be discharged-states her headache/neck/chest pain and nausea has resolved. Strict ed return precautions for worsening headache, blurry vision, chest tightness or squeezing, speech changes or neurologic deficits. Encouraged urgent outpatient follow-up with PMD and neurology for headache management. Life-threatening processes were considered but are low suspicion at this time, given history and physical exam. Pt was educated on all prescription medications and adverse effects. All patient's questions were answered and pt was stable at time of discharge. Differential includes meningitis, encephalitis, intracranial hemorrhage, obstructive hydrocephaly, CVA, carbon oxide poisoning, cerebral or cavernous venous thrombosis, hypertensive emergency, preeclampsia, giant cell arteritis, glaucoma, carotid or vertebral artery dissection, superior vena cava syndrome, infection, space-occupying lesions, acute myocardial infarction, aortic dissection, congestive heart failure, esophageal injury including rupture, surgical abdomen, arrhythmia, cardiomyopathy, myocarditis, pericarditis, peptic ulcer disease, pneumomediastinum, pneumonia, pneumothorax, pulmonary embolus, unstable angina, rib fracture, contusion, pericardial tamponade or effusion, pulmonary contusion, acute chest syndrome, covid-19 I spoken with the patient and her caregivers. I explained the patient's condition, diagnoses and treatment plan based on the information available to me at this time. I have answered the patient and her caregiver's questions and addressed any concerns. The patient and her caregivers have a good understanding of patient's diagnosis, condition and treatment plan as can be expected at this point. Vital signs have been stable. Patient's condition is stable and appropriate for discharge from the emergency department. Patient will pursue further outpatient evaluation with primary care physician or other designated or consulting physician as outlined in the discharge instructions. The patient and/or caregivers are agreeable to this plan of care and follow-up instructions have been explained in detail. The patient and/or caregivers have received these instructions in written form and have expressed an understanding of the discharge instructions. The patient and/or caregivers are aware that any significant change of condition or worsening of symptoms should prompt immediate return to this or the closest emergency department or call to 911. Lashanda Disclaimer: Lashanda Disclaimer: This electronic medical record was generated, in whole or in part, using a voice recognition dictation system. Departure Departure: Impression: Primary Impression: Headache Additional Impressions: Normocytic anemia Muscle spasms of neck Disposition: 01 HOME/RESIDENCE PRIOR TO ADM Condition: STABLE Referrals: YELENA MONTESINOS (PCP) Patient Instructions: Anemia, Nonspecific-Brief, Hypertension, Tension Headache Additional Instructions: Joe Sheppard MD-neurology, for headaches in 1-[address] [place] [address] [address] [place] [address] EMERGENCY DEPARTMENT GENERAL DISCHARGE INSTRUCTIONS Thank you for coming to [facility] Emergency Department (ED) today and trusting us with you care. We trust that you had a positivie experience in our Emergency Department. If you wish to speak to the department management, you may call the sirector at [phone]. YOUR FOLLOW UP INSTRUCTIONS ARE FOLLOWS: 1. Do you have a private Doctor? If you do not have a private doctir, please ask for a resource list of physicians or clinics that may be able to assist you with follow up care. 2. The Emergency Physicain has interpreted your x-rays. The X-Ray specialist will also review them. If there is a change in the findingd, you will be notified in 48 hours when at all possible. 3. A lab test or culture has been done, your results will be reviewed and you will be notified if you need a change in treatment. ADDITIONAL INSTRUCTIONS AND INFORMATION: 1. Your care today has been supervised by a physician who is specially trained in emergency care. Many problems require more than one evaluation for a complete diagnosis and treatment. We recommend that you schedule your follow up appointment as recommended to ensure complete treatment of you illness or injury. If you are unable to obtain follow up care and continue to have a problem, or if your consition worsens, we recommend that you return to the ED. 2. We are not able to safelymdetermine your condition over the phone nor are we able to give sound medical advice over the phone. For these safety reasons, if you call for medical advice we will ask you to come to the ED for further evaluation. 3. If you have any questions regarding these discharge instructions please call the ED at [phone]. SAFETY INFORMATION: In the interest of safety, wellness, and injury prevention; we encourage you to wear your sealbelt, if you smoke; quite smoking, and we encourage family to use a protective helmet for bicycling and other sporting events that present an increased risk for head injusry. IF YOUR SYMPTOMS WORSEN OR NEW SYMPTOMS DEVELOP, OR YOU HAVE CONCERNS ABOUT YOUR CONDITION; OR IF YOUR CONDITION WORSENS WHILE YOU ARE WAITING FOR YOUR FOLLOW UP APPOINTMENT; EITHER CONTACT YOUR PRIMARY CARE DOCTOR, THE PHYSICIAN WHOSE NAME AND NUMBER YOU WERE GIVEN, OR RETURN TO THE ED IMMEDIATELY. Scripts Cyclobenzaprine Hcl (CYCLOBENZAPRINE HCL) 5 Mg Tablet 1 TAB PO TID for pain, #20 TAB Prov: BOLA ALTAMIRANO DO 01/20/20 Justification of Admission: Justification of Admission: Justification of Admission Dx: N/A BOLA ALTAMIRANO DO Jan 20, 2020 14:01
--- NOTE | 2020-01-20 14:14 | EKG ---
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
[2020-01-20] MEDS ORDERED: PROCHLORPERAZINE 10 MG/2 ML VIAL. IV ONE (14:45)
[2020-01-20] MEDS ORDERED: diphenhydrAMINE 50 MG/ML VIAL IVP ONE (14:45)
[2020-01-20] MEDS ORDERED: DEXAMETHASONE SOD PHOS 10 MG/ML VIAL. IV ONE (14:45)
[2020-01-20] MEDS ORDERED: diazePAM 5 MG TABLET. PO ONE (14:45)
[2020-01-20] MEDS ORDERED: IV NORMAL SALINE 1,000ML 1,000 ML IV ONE (14:45)
[2020-01-20 14:50] LABS: BASO # 0.1 x10^3/uL (0.0-0.2); BASO % 1 % (0-3); EOS # 0.1 x10^3/uL (0.0-0.7); EOS % 1 % (0-3); HEMATOCRIT 21.3 % (36.0-47.0); HEMOGLOBIN 7.2 g/dL (12.0-15.5); LYMPH # 6.1 x10^3/uL (1.0-4.8); LYMPH % 63 % (24-48); MEAN CORPUSCULAR HEMOGLOBIN 28 pg (25-35); MEAN CORPUSCULAR HGB CONC 34 g/dL (31-37); MEAN CORPUSCULAR VOLUME 82 fL (79-100); MONO # 1.1 x10^3/uL (0.0-1.1); MONO % 11 % (0-9); NEUT # 2.4 x10^3uL (1.8-7.7); NEUT % 25 % (31-73); PLATELET COUNT 289 x10^3/uL (140-400); RED BLOOD COUNT 2.59 x10^6/uL (3.50-5.40); RED CELL DISTRIBUTION WIDTH 21.6 % (11.5-14.5); WHITE BLOOD COUNT 9.7 x10^3/uL (4.0-11.0)
[2020-01-20 14:54] LABS: CALCIUM 8.7 mg/dL (8.5-10.1); CREATININE 0.7 mg/dL (0.6-1.0); GFR 87.9; POTASSIUM 4.2 mmol/L (3.5-5.1)
[2020-01-20 15:07] LABS: ALBUMIN 4.3 g/dL (3.4-5.0); ALBUMIN/GLOBULIN RATIO 1.4 (1.0-1.7); MAGNESIUM 2.3 mg/dL (1.8-2.4); TOTAL BILIRUBIN 1.8 mg/dL (0.2-1.0); TOTAL PROTEIN 7.4 g/dL (6.4-8.2)
--- NOTE | 2020-01-20 15:13 | RAD ---
AP chest. HISTORY: Chest pain AP view was taken of the chest. There is sclerosis of the humeral head on the left, this pattern can be seen with ischemic necrosis and was present on an old study. Heart is upper normal in size. There is chronic blunting of the right costophrenic angle unchanged from an old study from 2017. There are no acute infiltrates. There is an old left rib fracture. IMPRESSION: 1. No acute infiltrates. Electronically signed by: Jonathan Sosa MD (01/20/2020 3:10 PM) [id number]
[2020-01-20 15:29] LABS: % ATYL 2 % (0-0); % BASOS 1 % (0-3); % EOS 1 % (0-5); % LYMPHS 70 % (24-48); % MONOS 7 % (0-10); % SEGS 19 % (35-66); NUCLEATED RBC 2; PLT ESTIMATE ADEQUATE (ADEQUATE)
[2020-01-20 15:30] LABS: ANISOCYTOSIS MOD; POIKILOCYTOSIS MOD; SICKLE CELLS FEW
--- NOTE | 2020-01-20 15:50 | RAD ---
T brain without contrast. HISTORY: Headache CT brain was done without contrast. Comparison is made with a study from August 2009. Sinuses are clear. There is no intracranial hemorrhage or subdural hematoma. Lateral ventricles are normal in size. There is no mass or shift of the midline. An acute CVA is not identified. IMPRESSION: 1. No intracranial hemorrhage or acute finding noted. PQRS Compliance Statement: One or more of the following individualized dose reduction techniques were utilized for this examination: 1. Automated exposure control 2. Adjustment of the mA and/or kV according to patient size 3. Use of iterative reconstruction technique Electronically signed by: Jonathan Sosa MD (01/20/2020 3:47 PM) [id number]
[2020-01-20] MEDS ORDERED: METOCLOPRAMIDE HCL 10 MG/2 ML VIAL. IVP ONE (16:00)
[2020-01-20 16:33] VITALS: BP 106/60
[2020-01-20] MEDS ORDERED: CYCL5TAB PO (16:44)
== END 2020-01-20 16:53 | disposition home or self-care (01) ==
LOC: ER 13:34
DX: R51 Headache (principal); D64.9 Anemia, unspecified; M62.838 Other muscle spasm; E03.9 Hypothyroidism, unspecified; R07.89 Other chest pain; Z88.8 Allergy status to other drugs, medicaments and biological substances
CPT/HCPCS: 36415; 70450; 71045; 80053; 83690; 83735; 83880; 84484; 85007; 85025; 85610; 85730; 93005; 96361; 96374; 96375; 99285; J0780; J1100; J1200; J2765; J7030

== ENCOUNTER 2020-02-21 18:02 | Emergency (ER) | payer MEDICARE ==
[~2020-02-21] VITALS: Ht 152.4 cm; Wt 57.2 kg
[2020-02-21] MEDS ORDERED: IV NORMAL SALINE 1,000ML 1,000 ML IV ONE (19:15)
[2020-02-21] MEDS ORDERED: MORPHINE SULFATE 4 MG/ML DISP.SYRIN. IV ONE ×2 (19:45→23:00)
[2020-02-21] MEDS ORDERED: ONDANSETRON PF 4 MG/2 ML VIAL. IVP ONE (19:45)
[2020-02-21] MEDS ORDERED: KETOROLAC 30 MG/ML VIAL. IVP ONE (19:45)
--- NOTE | 2020-02-21 19:59 | PHYS DOC ---
Past History Past Medical History: Hypertension, Hypothyroid, Migraines, Sickle Cell Disease, Other Additional Past Medical Histor: RECENTLY DIAGNOSED LEUKEMIA Past Surgical History: Cholecystectomy, , Hysterectomy, Oophorectomy, Tonsillectomy Alcohol Use: None Drug Use: None Adult General Chief Complaint Chief Complaint: SHOULDER INJURY HPI HPI Patient is a female with a history of hypertension, sickle cell, who presents today complaining of moderate pain to the right upper extremity that she is attributing to her sickle cell. She states she believes she is having sickle cell crisis. She states she was in a different hospital 2 weeks ago for the same complaint and was given blood transfusion. She states she also called her own oncologist/forestry professor who put her on hydrocodone. She states the hydr ocodone is not helping. Patient denies any injury. Denies any chest pain or shortness of breath. Review of Systems Review of Systems Constitutional: Denies fever or chills [] Eyes: Denies change in visual acuity, redness, or eye pain [] HENT: Denies nasal congestion or sore throat [] Respiratory: Denies cough or shortness of breath [] Cardiovascular: No additional information not addressed in HPI [] GI: Denies abdominal pain, nausea, vomiting, bloody stools or diarrhea [] : Denies dysuria or hematuria [] Musculoskeletal: Reports right upper extremity pain and possible sickle cell exacerbation Integument: Denies rash or skin lesions [] Neurologic: Denies headache, focal weakness or sensory changes [] All other systems were reviewed and found to be within normal limits, except as documented in this note. Current Medications Current Medications Current Medications Medications (Trade) Dose Ordered Sig/Jovon Start Time Stop Time Status Last Admin Dose Admin Ketorolac Tromethamine (Toradol 30mg Vial) 30 mg 1X ONCE 02/21/20 19:45 02/21/20 19:46 DC Morphine Sulfate (Morphine 4mg Syringe) 4 mg 1X ONCE 02/21/20 19:45 02/21/20 19:46 DC Ondansetron HCl (Zofran) 4 mg 1X ONCE 02/21/20 19:45 02/21/20 19:46 DC Sodium Chloride 1,000 ml @ 1,000 mls/hr 1X ONCE 02/21/20 19:15 02/21/20 20:14 Allergies Allergies Allergies Coded Allergies Type Severity Reaction Last Updated Verified fentanyl Adverse Reaction Severe SI 01/05/19 Yes Physical Exam Physical Exam Constitutional: Well developed, well nourished, no acute distress, non-toxic appearance. [] HENT: Normocephalic, atraumatic, bilateral external ears normal, oropharynx moist, no oral exudates, nose normal. [] Eyes: PERRLA, EOMI, conjunctiva normal, no discharge. [] Neck: Normal range of motion, no tenderness, supple, no stridor. [] Cardiovascular:Heart rate regular rhythm, no murmur [] Lungs & Thorax: Bilateral breath sounds clear to auscultation [] Abdomen: Bowel sounds normal, soft, no tenderness, no masses, no pulsatile masses. [] Skin: Warm, dry, no erythema, no rash. [] Back: No tenderness, no CVA tenderness. [] Extremities: No tenderness, no cyanosis, no clubbing, ROM intact, no edema. [] Neurologic: Alert and oriented X 3, normal motor function, normal sensory function, no focal deficits noted. [] Psychologic: Affect normal, judgement normal, mood normal. [] EKG EKG [] Radiology/Procedures Radiology/Procedures [] Heart Score Risk Factors: Risk Factors: DM, Current or recent (<one month) smoker, HTN, HLP, family his tory of CAD, obesity. Risk Scores: Risk Factors: DM, Current or recent (<one month) smoker, HTN, HLP, family history of CAD, obesity. Course & Med Decision Making Course & Med Decision Making Pertinent Labs and Imaging studies reviewed. (See chart for details) This is a 54-year-old female patient presenting to the ED today complaining of right upper extremity pain and stating this is a sickle cell exacerbation for her. Patient CBC CMP with no acute findings, reticulocyte count could not be done at this hospital it was signed out. He was given pain medicine and IV fluids. She states her pain has subsided and would like to go home. She has hydrocodone to use at home. She will follow-up with her forestry professor. Lashanda Disclaimer Lashanda Disclaimer This electronic medical record was generated, in whole or in part, using a voice recognition dictation system. Departure Departure: Impression: Primary Impression: Sickle cell anemia Disposition: 01 DC HOME SELF CARE/HOMELESS Condition: STABLE Referrals: YELENA MONTESINOS (PCP) Follow-up with your doctor in the course of this week or next week Patient Instructions: Sickle Cell Anemia-Brief Additional Instructions: You were seen for sickle cell pain. Please follow-up with your forestry professor in the course of this week or next week. Problem Qualifiers Primary Impression: Sickle cell anemia Sickle-cell associated disorders: without crisis Qualified Codes: D57.1 - Sickle-cell disease without crisis JIM AVILES APRN Feb 21, 2020 19:59
[2020-02-21 20:31] LABS: HEMATOCRIT 27.3 % (36.0-47.0); HEMOGLOBIN 8.9 g/dL (12.0-15.5); RED BLOOD COUNT 3.11 x10^6/uL (3.50-5.40); RED CELL DISTRIBUTION WIDTH 19.7 % (11.5-14.5); WHITE BLOOD COUNT 15.6 x10^3/uL (4.0-11.0)
[2020-02-21 20:37] LABS: CALCIUM 9.7 mg/dL (8.5-10.1); CREATININE 0.6 mg/dL (0.6-1.0); POTASSIUM 3.4 mmol/L (3.5-5.1)
[2020-02-21 20:43] LABS: ALBUMIN 4.8 g/dL (3.4-5.0); ALBUMIN/GLOBULIN RATIO 1.3 (1.0-1.7); TOTAL BILIRUBIN 2.4 mg/dL (0.2-1.0); TOTAL PROTEIN 8.4 g/dL (6.4-8.2)
[2020-02-21 20:59] LABS: COLOR,URINE YELLOW
[2020-02-21 21:00] LABS: BACTERIA,URINE 0 /HPF (0-FEW); BILIRUBIN,URINE SMALL (NEG); CLARITY,URINE CLEAR; GLUCOSE,URINE NEG (NEG); NITRITE,URINE NEG (NEG); RBC,URINE OCC /HPF (0-2); SQUAMOUS EPITHELIAL CELL,UR FEW /LPF; UROBILINOGEN,URINE >=8.0 mg/dL (0.2 mg/dL)
[2020-02-21 21:28] LABS: BASO # 0.1 x10^3/uL (0.0-0.2); BASO % 1 % (0-3); EOS # 0.3 x10^3/uL (0.0-0.7); EOS % 2 % (0-3); HEMATOCRIT 28.2 % (36.0-47.0); HEMOGLOBIN 9.1 g/dL (12.0-15.5); LYMPH # 5.3 x10^3/uL (1.0-4.8); LYMPH % 34 % (24-48); MEAN CORPUSCULAR HEMOGLOBIN 29 pg (25-35); MEAN CORPUSCULAR HGB CONC 32 g/dL (31-37); MEAN CORPUSCULAR VOLUME 89 fL (79-100); MONO # 1.8 x10^3/uL (0.0-1.1); MONO % 11 % (0-9); NEUT # 8.4 x10^3uL (1.8-7.7); NEUT % 52 % (31-73); PLATELET COUNT 291 x10^3/uL (140-400); RED BLOOD COUNT 3.18 x10^6/uL (3.50-5.40); RED CELL DISTRIBUTION WIDTH 19.6 % (11.5-14.5); WHITE BLOOD COUNT 15.9 x10^3/uL (4.0-11.0)
[2020-02-21 22:31] VITALS: BP 174/87
[2020-02-22 02:17] LABS: % EOS 2 % (0-5); % LYMPHS 37 % (24-48); % MONOS 13 % (0-10); % SEGS 48 % (35-66)
[2020-02-22 02:18] LABS: ANISOCYTOSIS MOD
[2020-02-22 02:19] LABS: OVALOCYTES FEW; PLT ESTIMATE ADEQUATE (ADEQUATE); ROULEAUX PRESENT
== END 2020-02-21 23:07 | disposition home or self-care (01) ==
LOC: ER 18:02
DX: D57.1 Sickle-cell disease without crisis (principal); I10 Essential (primary) hypertension; E03.9 Hypothyroidism, unspecified; G43.909 Migraine, unspecified, not intractable, without status migrainosus; Z86.2 Personal history of diseases of the blood and blood-forming organs and certain disorders involving the immune mechanism; Z88.8 Allergy status to other drugs, medicaments and biological substances
CPT/HCPCS: 36415; 80053; 81001; 85007; 85025; 85027; 85045; 87086; 96361; 96374; 96375; 96376; 99284; J1885; J2270; J2405; J7030

== ENCOUNTER 2020-02-24 10:40 | Emergency (ER) | payer MEDICARE ==
[~2020-02-24] VITALS: Ht 154.9 cm; Wt 54.6 kg
--- NOTE | 2020-02-24 10:55 | PHYS DOC ---
Past History Past Medical History: Hypertension, Hypothyroid, Migraines, Sickle Cell Disease, Other Additional Past Medical Histor: RECENTLY DIAGNOSED LEUKEMIA Past Surgical History: Cholecystectomy, , Hysterectomy, Oophorectomy, Tonsillectomy Alcohol Use: None Drug Use: None Adult General Chief Complaint Chief Complaint: ALTERED MENTAL STATUS HPI HPI Patient is a 54-year-old female who presents for altered mental status. Patient arrived via EMS who are primary historians, little is known about patient except last known normal was yesterday evening by family. Patient has known history of sickle cell disease. Unsure if patient has had any COVID-19 contact, recent febrile illness or other precipitating factors. In route, patient GCS greater than 8, vitals remarkable for febrile patient with sinus tachycardia 132, patient alert but not responding to questioning at this time More detailed history obtained later once arrived to ER. Patient was seen at our facility several days ago for sickle cell crisis. This resolved with pain medication and patient returned home where her baseline is performing all activities of daily living without issues. Patient is being treated for leukemia and recently had telemetry visit with oncologist and is pending outpatient motors assembler follow-up at this time. reports yesterday evening patient reported feelings of fever, chills, and nausea. On waking today, patient was alert but more lethargic than usual which concerned prompting him to call EMS. Patient has been taking all 9 medications. She is up-to-date on all vaccinations. She has no known blood loss, has never had a colonoscopy. No known COVID-19 contacts but admits being in recent contact with family member who had pneumonia. Review of Systems Review of Systems Unobtainable due to patient's mentation Allergies Allergies Allergies Coded Allergies Type Severity Reaction Last Updated Verified prednisone Allergy Unknown 02/21/20 Yes fentanyl Adverse Reaction Severe SI 01/05/19 Yes Physical Exam Physical Exam Constitutional: Pt is alert, can follow simple verbal commands but nonverbal at this time HENT: Head: Normocephalic and atraumatic. Mouth/Throat: Oropharynx is clear and dry No hematomas or lacerations or abrasions to face or scalp OP clear, no blood, no malocclusion, dentition intact Nares clear, no nasal septal hematoma External ears normal Midface stable Eyes: Conjunctivae pale and EOM are normal. Pupils are equal, round, and reactive to light. Neck: C-spine midline nontender, no step-offs, no meningeal signs specifically negative Kernig and Brudzinski tests Cardiovascular: Normal tachycardic, regular rhythm and normal heart sounds. Pulmonary/Chest: Effort increased and with decreased breath sounds and crackles in left lower lobe, saturating greater than 90% on room air Abdominal: Soft. Bowel sounds are normal. Pt exhibits no distension. There is no tenderness. Musculoskeletal: No bony tenderness to extremities, no deformities, full ROM extremities Chest wall stable Pelvis stable and non-tender Rectal exam performed, rectal tone intact without any obvious masses or abnormalities, external genitals unremarkable with Serrano catheter now in place No vertebral TTP and spine without stepoffs Neurological: Pt is alert Moving all extremities willfully, able to wiggle all fingers and toes Alert Sensation grossly intact Skin: Skin is warm and dry. No abrasions, no lacerations Psychiatric: Behavior is appropriate for situation Nursing note and vitals reviewed. Current Patient Data Vital Signs Vital Signs Date Time Temp Pulse Resp B/P (MAP) Pulse Ox O2 Delivery O2 Flow Rate FiO2 02/24/20 14:34 101.9 140 36 146/86 (106) 93 Nasal Cannula 2.0 Lab Results Laboratory Tests Test 02/24/20 11:05 02/24/20 11:10 02/24/20 11:30 02/24/20 11:42 White Blood Count 42.4 x10^3/uL (4.0-11.0) Red Blood Count 2.00 x10^6/uL (3.50-5.40) Hemoglobin 5.8 g/dL (12.0-15.5) Hematocrit 17.8 % (36.0-47.0) Mean Corpuscular Volume 89 fL (79-100) Mean Corpuscular Hemoglobin 29 pg (25-35) Mean Corpuscular Hemoglobin Concent 33 g/dL (31-37) Red Cell Distribution Width 21.2 % (11.5-14.5) Platelet Count 89 x10^3/uL (140-400) Neutrophils (%) (Auto) 44 % (31-73) Lymphocytes (%) (Auto) 47 % (24-48) Monocytes (%) (Auto) 8 % (0-9) Eosinophils (%) (Auto) 0 % (0-3) Basophils (%) (Auto) 1 % (0-3) Neutrophils # (Auto) 18.6 x10^3uL (1.8-7.7) Lymphocytes # (Auto) 20.1 x10^3/uL (1.0-4.8) Monocytes # (Auto) 3.5 x10^3/uL (0.0-1.1) Eosinophils # (Auto) 0.0 x10^3/uL (0.0-0.7) Basophils # (Auto) 0.2 x10^3/uL (0.0-0.2) Segmented Neutrophils % 40 % (35-66) Lymphocytes % 52 % (24-48) Monocytes % 7 % (0-10) Myelocytes % 1 % (0-0) Platelet Estimate Decreased (ADEQUATE) Polychromasia Present Poikilocytosis Mod Anisocytosis Mod Sickle Cells Present Target Cells Occ Ovalocytes Mod Sodium Level 136 mmol/L (136-145) Potassium Level 3.2 mmol/L (3.5-5.1) Chloride Level 98 mmol/L (98-107) Carbon Dioxide Level 22 mmol/L (21-32) Anion Gap 16 (6-14) Blood Urea Nitrogen 43 mg/dL (7-20) Creatinine 1.0 mg/dL (0.6-1.0) Estimated GFR (Cockcroft-Gault) 58.2 BUN/Creatinine Ratio 43 (6-20) Glucose Level 143 mg/dL (70-99) Lactic Acid Level 3.0 mmol/L (0.4-2.0) Calcium Level 9.2 mg/dL (8.5-10.1) Magnesium Level 2.7 mg/dL (1.8-2.4) Total Bilirubin 4.6 mg/dL (0.2-1.0) Aspartate Amino Transf (AST/SGOT) 194 U/L (15-37) Alanine Aminotransferase (ALT/SGPT) 71 U/L (14-59) Alkaline Phosphatase 456 U/L (46-116) Ammonia 16 mcmol/L (11-34) Creatine Kinase 146 U/L (26-192) Troponin I Quantitative 1.550 ng/mL (0-0.055) Total Protein 8.0 g/dL (6.4-8.2) Albumin 4.0 g/dL (3.4-5.0) Albumin/Globulin Ratio 1.0 (1.0-1.7) Salicylates Level < 2.8 mg/dL (2.8-20.0) Salicylate Last Dose Date Unknown Salicylate Last Dose Time Unknown Acetaminophen Level < 2 mcg/mL (10-30) Acetaminophen Last Dose Date Unknown Acetaminophen Last Dose Time Unknown Ethyl Alcohol Level < 10 mg/dL (0-10) Glucose (Fingerstick) 140 mg/dL (70-99) Blood Gas pH 7.55 (7.35-7.45) Blood Gas PCO2 22 mmHg (35-45) Blood Gas PO2 60 mmHg (80-100) Blood Gas HCO3 19 mmol/L (22-26) Arterial Bld O2 Saturation (Calc) 94 % (92-99) FiO2 28 % Urine Collection Type U cath Urine Color Yellow Urine Clarity Hazy Urine pH 5.5 Urine Specific [place] 1.010 Urine Protein 100 mg/dl (NEG-TRACE) Urine Glucose (UA) Neg mg/dL (NEG) Urine Ketones (Stick) Neg mg/dL (NEG) Urine Blood Small (NEG) Urine Nitrite Neg (NEG) Urine Bilirubin Neg (NEG) Urine Urobilinogen Dipstick 1.0 mg/dL (0.2 mg/dL) Urine Leukocyte Esterase Neg (NEG) Urine RBC Occ /HPF (0-2) Urine WBC 1-4 /HPF (0-4) Urine Amorphous Sediment Present /HPF Urine Bacteria Few /HPF (0-FEW) Urine Test Negative (NEG) Urine Opiates Screen Pos (NEG) Urine Methadone Screen Neg (NEG) Urine Barbiturates Neg (NEG) Urine Phencyclidine Screen Neg (NEG) Urine Amphetamine/Methamphetamine Neg (NEG) Urine Benzodiazepines Screen Neg (NEG) Urine Cocaine Screen Neg (NEG) Urine Cannabinoids Screen Neg (NEG) Urine Ethyl Alcohol Neg (NEG) Test 02/24/20 11:54 Stool Occult Blood Negative (NEG) EKG EKG EKG ordered and interpreted by myself at 1204 hrs. as sinus tachycardia at 133 bpm, unremarkable intervals, right axis deviation, no acute ischemic findings, no STEMI Radiology/Procedures Radiology/Procedures PROCEDURE: CT CODE STROKE HEAD WO CT head without contrast: Reason for examination: Code stroke. Altered mental status. Comparison is made to previous studies dated between 01/20/2020 and 08/10/2017. Axial images were obtained through the brain. No contrast was administered. Exposure: One or more of the following individualized dose reduction techniques were utilized for this examination: 1. Automated exposure control 2. Adjustment of the mA and/or kV according to patient size 3. Use of iterative reconstruction technique. Ventricular systems are symmetric and not dilated. No midline shift is seen. There is no evidence of intracranial hemorrhage, infarct, mass or edema. No abnormalities of seen at the orbits. The paranasal sinuses are clear. There continues to be some opacification of some of the mastoid air cells which is unchanged. There continue to be multiple small lytic lesions in the calvarium bilaterally seen since at least 08/10/2017. No acute skull abnormality is seen. IMPRESSION: No acute intracranial abnormality identified. Continued presence of multiple small scattered lytic lesions in the calvarium which have been seen previously and do not appear to show significant change. FOR INTERNAL CODING PURPOSES PROCEDURE: PORTABLE CHEST 1V Single view chest dated 02/24/2020. Comparison made to 01/20/2020. CLINICAL INDICATION: Altered mental status. FINDINGS: Single upright portable exam performed. Heart and mediastinal contours are stable. Lung volumes are low, limiting evaluation. There is some patchy density at the retrocardiac left base that appears somewhat more prominent from prior study. No pleural effusion. No pneumothorax. Impression: Patchy left basilar opacity, atelectasis versus early pneumonia. Electronically signed by: Shaheed Jenkins MD (02/24/2020 11:38 AM) [id number] Heart Score HEART Score for Chest Pain: HEART Score for Chest Pain Response (Comments) Value History Moderately Suspicious 1 ECG Normal 0 Age >45 - < 65 1 Risk Factors >3 Risk Factors or Hx CAD 2 Troponin >3 x Normal Limit 2 Total 6 Risk Factors: Risk Factors: DM, Current or recent (<one month) smoker, HTN, HLP, family history of CAD, obesity. Risk Scores: Risk Factors: DM, Current or recent (<one month) smoker, HTN, HLP, family history of CAD, obesity. Course & Med Decision Making Course & Med Decision Making Patient seen on immediate ER arrival via EMS Airway patent, moderate respiratory distress, tachycardic, febrile, and tachypneic on arrival Minimal history obtained which was later best obtained by , comprehensive physical exam and subsequent diagnostic work-up ordered Discussed with most likely diagnosis of sepsis secondary to pneumonia and sickle cell crisis, type II NSTEMI as a result of underlying respiratory disease I discussed need for transport to [facility] for higher acuity of care, agreeable to this Dr. Rogers, on-call hospitalist at [facility] called and case discussed. He was agreeable for admission under his care Dr. Robert, on-call equipment installation professional at [facility] called and case discussed. No indication for anticoagulation or transfusion at this time IV fluid rehydration with 2 L normal saline, 2 g Rocephin and 500 mg azithromycin for pneumonia coverage administered, [facility] called and x1 pRBC appropriate for patient's sickle cell ordered and on hold if needed All question/concerns had were addressed prior to ER transport to [facility] in critical condition Critical Care Time This patient required critical care. Due to the fact that the patient required a significant amount of one on one physician - patient contact time, ordering and review of studies, arranging urgent treatment with development of a management plan, evaluation of patients response to treatment with frequent reassessments, and discussions with other providers this patient required critical care time in excess of 30 minutes. Critical care time was indicated due to the inherent instability and/or potential for instability in this patient. The critical care time that is allocated to this patient is above and beyond any time spent on any other billable procedures performed on this patient. Dragon Disclaimer Dragon Disclaimer This electronic medical record was generated, in whole or in part, using a voice recognition dictation system. Departure Departure: Impression: Primary Impression: Acute chest syndrome due to sickle-cell disease Additional Impressions: LLL pneumonia Sepsis due to pneumonia History of leukemia Disposition: 01 DC HOME SELF CARE/HOMELESS Condition: STABLE Referrals: YELENA MONTESINOS (PCP) Problem Qualifiers NIKA LOPES DO Feb 24, 2020 10:55
--- NOTE | 2020-02-24 11:09 | RAD ---
CT head without contrast: Reason for examination: Code stroke. Altered mental status. Comparison is made to previous studies dated between 01/20/2020 and 08/10/2017. Axial images were obtained through the brain. No contrast was administered. Exposure: One or more of the following individualized dose reduction techniques were utilized for this examination: 1. Automated exposure control 2. Adjustment of the mA and/or kV according to patient size 3. Use of iterative reconstruction technique. Ventricular systems are symmetric and not dilated. No midline shift is seen. There is no evidence of intracranial hemorrhage, infarct, mass or edema. No abnormalities of seen at the orbits. The paranasal sinuses are clear. There continues to be some opacification of some of the mastoid air cells which is unchanged. There continue to be multiple small lytic lesions in the calvarium bilaterally seen since at least 08/10/2017. No acute skull abnormality is seen. IMPRESSION: No acute intracranial abnormality identified. Continued presence of multiple small scattered lytic lesions in the calvarium which have been seen previously and do not appear to show significant change. FOR INTERNAL CODING PURPOSES Critical result: Findings discussed with NIKA LOPES at 02/24/2020 11:02 AM. RESULT CODE: (C) Electronically signed by: Beryl Deleon MD (02/24/2020 11:06 AM) JOSE
[2020-02-24] MEDS ORDERED: IV NORMAL SALINE 1,000ML 1,000 ML IV ONE ×2 (11:15→12:15)
[2020-02-24 11:33] LABS: BASO # 0.2 x10^3/uL (0.0-0.2); BASO % 1 % (0-3); EOS % 0 % (0-3); LYMPH # 20.1 x10^3/uL (1.0-4.8); LYMPH % 47 % (24-48); MEAN CORPUSCULAR HEMOGLOBIN 29 pg (25-35); MEAN CORPUSCULAR HGB CONC 33 g/dL (31-37); MEAN CORPUSCULAR VOLUME 89 fL (79-100); MONO # 3.5 x10^3/uL (0.0-1.1); MONO % 8 % (0-9); NEUT # 18.6 x10^3uL (1.8-7.7); NEUT % 44 % (31-73); PLATELET COUNT 89 x10^3/uL (140-400); RED CELL DISTRIBUTION WIDTH 21.2 % (11.5-14.5)
[2020-02-24] MEDS ORDERED: IV NORMAL SALINE 100ML 100 ML ONE (11:33)
[2020-02-24 11:38] LABS: HEMATOCRIT 17.8 % (36.0-47.0); HEMOGLOBIN 5.8 g/dL (12.0-15.5); WHITE BLOOD COUNT 42.4 x10^3/uL (4.0-11.0)
--- NOTE | 2020-02-24 11:41 | RAD ---
Single view chest dated 02/24/2020. Comparison made to 01/20/2020. CLINICAL INDICATION: Altered mental status. FINDINGS: Single upright portable exam performed. Heart and mediastinal contours are stable. Lung volumes are low, limiting evaluation. There is some patchy density at the retrocardiac left base that appears somewhat more prominent from prior study. No pleural effusion. No pneumothorax. Impression: Patchy left basilar opacity, atelectasis versus early pneumonia. Electronically signed by: Shaheed Jenkins MD (02/24/2020 11:38 AM) [id number]
[2020-02-24 11:48] LABS: BGAS PH 7.55 (7.35-7.45)
[2020-02-24 11:49] LABS: CALCIUM 9.2 mg/dL (8.5-10.1); GFR 58.2; POTASSIUM 3.2 mmol/L (3.5-5.1)
[2020-02-24 11:54] LABS: MAGNESIUM 2.7 mg/dL (1.8-2.4); TOTAL BILIRUBIN 4.6 mg/dL (0.2-1.0)
[2020-02-24] MEDS ORDERED: AZITHROMYCIN 500 MG VIAL. IV ONE (11:56)
[2020-02-24] MEDS ORDERED: IV NORMAL SALINE 250ML 250 ML ONE (11:56)
[2020-02-24] MEDS ORDERED: AZITHROMYCIN 500 MG in IV NORMAL SALINE 250ML 250 ML IV ONE (12:00)
[2020-02-24 12:06] LABS: ACETAMIN < 2 mcg/mL (10-30); ETHANOL < 10 mg/dL (0-10); SALIC < 2.8 mg/dL (2.8-20.0)
[2020-02-24] MEDS ORDERED: ACETAMINOPHEN 650 MG SUPP.RECT. PR ONE (12:15)
[2020-02-24 12:18] LABS: U PREG PATIENT NEGATIVE (NEG)
[2020-02-24 12:22] LABS: BARBITURATES NEG (NEG); BENZODIAZEPINES NEG (NEG); CANNABINOIDS NEG (NEG); COCAINE NEG (NEG); METHADONE NEG (NEG); OPIATES POS (NEG); PHENCYCLIDINE NEG (NEG)
[2020-02-24 12:24] LABS: AMPHETAMINE/METHAMPHETAMINE NEG (NEG)
[2020-02-24] MEDS ORDERED: MORPHINE SULFATE 4 MG/ML DISP.SYRIN. IV ONE (12:30)
[2020-02-24 12:45] LABS: FECAL OB PT NEGATIVE (NEG)
[2020-02-24] MEDS ORDERED: POTASSIUM CL 20MEQ D5-0.45NACL 1,000 ML IV ONE (13:15)
[2020-02-24 13:34] LABS: BILIRUBIN,URINE NEG (NEG); CLARITY,URINE HAZY; COLOR,URINE YELLOW; GLUCOSE,URINE NEG (NEG)
[2020-02-24 13:35] LABS: AMORPHOUS SEDIMENT,UR PRESENT /HPF; BACTERIA,URINE FEW /HPF (0-FEW); NITRITE,URINE NEG (NEG); RBC,URINE OCC /HPF (0-2)
[2020-02-24 14:15] LABS: % LYMPHS 52 % (24-48); % MONOS 7 % (0-10); % MYELOS 1 % (0-0); % SEGS 40 % (35-66)
[2020-02-24 14:16] LABS: ANISOCYTOSIS MOD; POIKILOCYTOSIS MOD
[2020-02-24 14:17] LABS: OVALOCYTES MOD; SICKLE CELLS PRESENT; TARGET CELLS OCC
[2020-02-24 14:18] LABS: POLYCHROMASIA PRESENT
[2020-02-24 14:19] LABS: PLT ESTIMATE DECREASED (ADEQUATE)
[2020-02-24 14:34] VITALS: BP 146/86
--- NOTE | 2020-02-24 14:55 | EKG ---
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
== END 2020-02-24 15:15 | disposition short-term general hospital (02) ==
LOC: ER 10:40
DX: A41.89 Other specified sepsis (principal); D57.80 Other sickle-cell disorders without crisis; R07.1 Chest pain on breathing; R41.82 Altered mental status, unspecified; J18.9 Pneumonia, unspecified organism; R00.0 Tachycardia, unspecified; I10 Essential (primary) hypertension; E03.9 Hypothyroidism, unspecified; G43.909 Migraine, unspecified, not intractable, without status migrainosus; Z90.49 Acquired absence of other specified parts of digestive tract; Z98.890 Other specified postprocedural states; Z85.6 Personal history of leukemia; Z90.89 Acquired absence of other organs; Z90.710 Acquired absence of both cervix and uterus
CPT/HCPCS: 36415; 51702; 70450; 71045; 80053; 80307; 80329; 81001; 81025; 82140; 82274; 82550; 82803; 82947; 83605; 83735; 84443; 84484; 85007; 85025; 85045; 86850; 86900; 86901; 87040; 93005; 96365; 96367; 96375; 99291; G0480; J0456; J0696; J2270; J7030; J7050; 86922

== ENCOUNTER → 2020-04-03 | Outpatient (CLI) | payer MEDICARE ==
--- NOTE | 2020-04-03 17:42 | RAD ---
INDICATION: Reason: CHEST PRESSURE / Spl. Instructions: / History: COMPARISON: February 24, 2020 FINDINGS: Single view of chest obtained. Cardiac silhouette is enlarged. Blunting of the right greater than left costophrenic angle. Patchy opacities at right greater than left lung base. Mild interstitial prominence. Degenerative changes of the spine. Compression deformity at the lower thoracic spine. IMPRESSION: * Blunting of right greater than left costophrenic angle which could be from small pleural effusion. Hazy opacity at the right greater than left lung base could be from atelectasis or infiltrate. * Compression fracture lower thoracic spine. Electronically signed by: Sukhjinder Palmer MD (04/03/2020 5:38 PM) [id number]
== END ==
LOC: PMG 17:07
PROVIDERS: ATTEND Physician Assistant
DX: M48.54XA Collapsed vertebra, not elsewhere classified, thoracic region, initial encounter for fracture (principal); R07.89 Other chest pain; R50.9 Fever, unspecified
CPT/HCPCS: 71046

== ENCOUNTER → 2020-05-07 | Outpatient (CLI) | payer MEDICARE ==
[~2020-05-07] MED LIST changes: +AMBR5TAB3 PO; +ASPI325T8 PO; +CLOP75TA57 PO; +GABA-587 PO; +LEVO75TA5 PO; +MILK175C4 PO; +MULT-245 PO; +[UNRECOGNIZED DRUG - CODE] PO
== END ==
LOC: LAB 11:55
PROVIDERS: ATTEND Internal Medicine Cardiovascular Disease
DX: Z01.812 Encounter for preprocedural laboratory examination (principal); Q21.1 Atrial septal defect; Z20.828 Contact with and (suspected) exposure to other viral communicable diseases
CPT/HCPCS: U0003

== ENCOUNTER → 2020-05-31 | Outpatient (CLI) | payer MEDICARE ==
--- NOTE | 2020-06-02 04:16 | RAD ---
Radiographic skeletal survey x-rays, 19 images HISTORY: Lymphoma. Sickle cell disease with crisis. FINDINGS: Atrial septal defect repair device. Heart size upper limits normal. No pulmonary opacities or pleural effusions. Cholecystectomy clips. Bony sclerosis left humeral head likely from osteonecrosis. There are chronic central endplate focal compression deformities of the thoracic and lumbar vertebra which are typical of chronic hemolytic an emia is. C5-C6 and C6-C7 disc osteophytes lower cervical spine. L3-4 lumbar spine disc height loss an d disc osteophyte. Bone infarcts with mild bony sclerosis of the right distal femoral metadiaphysis a nd proximal tibial metadiaphysis. The left forearm demonstrates proximal radial shaft heterogeneous b one lysis, no periosteal reaction evident. Separately there is a possible subtle focus of bone lysis of the left distal tibial metadiaphysis. There may be subtle calvarial lytic lesions as well. IMPRESSION: 1. Sequela of chronic hemolytic anemia with central endplate chronic well-defined deformities of the thoracic and lumbar spine. 2. 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 3. Questionable lytic bone lesions of the calvarium, left radius and left tibia. These are of uncerta in etiology. Bone lysis related to multiple myeloma or some other pathologic bone marrow replacing pr ocess is possible. This may be further assessed with bone scan imaging. Electronically signed by: Efrain George MD (06/02/2020 4:13 AM) [facility]
== END ==
LOC: RAD 13:27
PROVIDERS: ATTEND Internal Medicine Hematology & Oncology
DX: C83.00 Small cell B-cell lymphoma, unspecified site (principal); M43.8X5 Other specified deforming dorsopathies, thoracolumbar region; D57.00 Hb-SS disease with crisis, unspecified
CPT/HCPCS: 77075

== ENCOUNTER 2020-06-02 11:21 | Observation (INO) | payer MEDICARE ==
[~2020-06-02] VITALS: Ht 152.4 cm; Wt 50.4 kg
[~2020-06-02 11:21] MED LIST changes: -AMBR5TAB3 PO; -ASPI325T8 PO; -CLOP75TA57 PO; -GABA-587 PO; -LEVO75TA5 PO; -MILK175C4 PO; -MULT-245 PO; -[UNRECOGNIZED DRUG - CODE] PO
[2020-06-02 12:06] LABS: BASO # 0.1 x10^3/uL (0.0-0.2); BASO % 1 % (0-3); EOS # 0.1 x10^3/uL (0.0-0.7); EOS % 1 % (0-3); LYMPH # 6.5 x10^3/uL (1.0-4.8); LYMPH % 51 % (24-48); MEAN CORPUSCULAR HEMOGLOBIN 32 pg (25-35); MEAN CORPUSCULAR HGB CONC 33 g/dL (31-37); MEAN CORPUSCULAR VOLUME 97 fL (79-100); MONO # 2.2 x10^3/uL (0.0-1.1); MONO % 17 % (0-9); NEUT # 3.8 x10^3uL (1.8-7.7); NEUT % 30 % (31-73); PLATELET COUNT 301 x10^3/uL (140-400); RED BLOOD COUNT 1.84 x10^6/uL (3.50-5.40); RED CELL DISTRIBUTION WIDTH 20.6 % (11.5-14.5); WHITE BLOOD COUNT 12.7 x10^3/uL (4.0-11.0)
[2020-06-02 12:14] LABS: HEMATOCRIT 17.9 % (36.0-47.0); HEMOGLOBIN 5.9 g/dL (12.0-15.5)
--- NOTE | 2020-06-02 12:15 | PHYS DOC ---
Past History Past Medical History: Hypertension, Hypothyroid, Migraines, Sickle Cell Disease, Stroke, Other Additional Past Medical Histor: RECENTLY DIAGNOSED LEUKEMIA Past Surgical History: Cholecystectomy, , Hysterectomy, Oophorectomy, Tonsillectomy Alcohol Use: None Drug Use: None Adult General Chief Complaint Chief Complaint: ABNORMAL LABS [facility] HPI Patient is a 54-year-old female with past medical history of leukemia and sickle cell disease who presents to the emergency room stating that her physician sent her here for a blood transfusion. She had blood drawn on Wednesday and her hemoglobin was 6.6. Her business proposal rep sent her here for transfusion. She states that overall she is asymptomatic. She does get some shortness of breath when she is walking stairs. She otherwise has not had any, shortness of breath, chest pain, weakness, fatigue. She last got transfused over the fall in January. Review of Systems Review of Systems Complete ROS is negative unless otherwise documented in [facility] Allergies Allergies Allergies Coded Allergies Type Severity Reaction Last Updated Verified prednisone Allergy Unknown 06/02/20 Yes fentanyl Adverse Reaction Severe SI 06/02/20 Yes Uncoded Allergies Type Severity Reaction Last Updated Verified STEROID Allergy Unknown 06/02/20 Physical Exam Physical Exam General: Awake, alert, NAD. Well Nourished, well hydrated. Cooperative HEENT: Atraumatic, EOMI, PERRL, airway patent, moist oral mucosa Neck: Supple, trachea midline Respiratory: CTA bilaterally, normal effort, no wheezing/crackles CV: RRR, no murmur, cap refill <2 GI: Soft, nondistended, nontender, no masses MSK: No obvious deformities Skin: Warm, dry, intact Neuro: A&O x3, speech NL, sensory and motor grossly intact, no focal deficits Psych: Normal affect, normal mood, not suicidal or homicidal Current Patient Data Vital Signs Vital Signs Date Time Temp Pulse Resp B/P (MAP) Pulse Ox O2 Delivery O2 Flow Rate FiO2 06/02/20 11:35 98.7 109 20 142/95 (111) 92 Room Air EKG EKG [] Radiology/Procedures Radiology/Procedures [] Heart Score Risk Factors: Risk Factors: DM, Current or recent (<one month) smoker, HTN, HLP, family history of CAD, obesity. Risk Scores: Risk Factors: DM, Current or recent (<one month) smoker, HTN, HLP, family history of CAD, obesity. Course & Med Decision Making Course & Med Decision Making Pertinent Labs and Imaging studies reviewed. (See chart for details) Patient is a 54-year-old female who presents to the emergency room requesting a blood transfusion. I did read the message from her business proposal rep which does recommend that she get blood. Repeat labs were done and patient will receive a transfusion. She is asymptomatic and hemodynamically stable. Unable to obtain blood for patient today due to multiple antibodies requiring specialized blood. Patient will be admitted until blood is obtained. Dragon Disclaimer Dragon Disclaimer This electronic medical record was generated, in whole or in part, using a voice recognition dictation system. Departure Departure: Impression: Primary Impression: Sickle cell anemia Additional Impression: Anemia requiring transfusions Disposition: 09 ADMITTED INPT THIS HOSP Condition: STABLE Referrals: YELENA MONTESINOS (PCP) Problem Qualifiers ABDELRAHMAN MEJIA MD Jun 02, 2020 12:15
[2020-06-02 13:15] LABS: POTASSIUM ISTAT 3.6 mmol/L (3.5-5.0)
[2020-06-02 13:20] LABS: HEMOGLOBIN ISTAT 6.5 gm/dL
--- NOTE | 2020-06-02 17:44 | NUR ---
PT ARRIVED TO UNIT VIA EMS. PT IS PLEASANT AND STABLE AT TIME OF ADMISSION. PT'S TELE MONITOR APPLIED. PT IS ORIENTED TO ROOM AND PROCEDURES. PATIENT IS OFFERED FOOD AND DRINK AND ACCEPTS. PTS MEDICATIONS ENTERED INTO COMPUTER DR MADDOX NOTIFIED OF ADMISSION. WILL CONTINUE TO MONITOR.
[2020-06-02] MEDS ORDERED: ALBUTEROL SULFATE 2.5 MG/3 ML NEBU. INH PRN (18:00)
[2020-06-02] MEDS ORDERED: IBUPROFEN 400 MG TABLET. PO PRN (18:00)
[2020-06-02] MEDS ORDERED: LEVO75TA5 PO (18:05)
[2020-06-02] MEDS ORDERED: SERT50TA PO (18:10)
[2020-06-02] MEDS ORDERED: MILK175C4 PO (18:10)
[2020-06-02] MEDS ORDERED: GABA-587 PO ×3 (18:10)
[2020-06-02] MEDS ORDERED: ASPI325T8 PO (18:10)
[2020-06-02] MEDS ORDERED: AMBR5TAB3 PO (18:10)
[2020-06-02] MEDS ORDERED: CLOP75TA57 PO (18:10)
[2020-06-02] MEDS ORDERED: MULT-245 PO (18:10)
[2020-06-02] MEDS ORDERED: [UNRECOGNIZED DRUG - CODE] PO (18:10)
[2020-06-02 18:17] VITALS: BP 127/79
[2020-06-02] MEDS: rOPINIRole 0.25 MG TABLET. PO SCH (20:23)
[2020-06-02] MEDS: CYCLOBENZAPRINE 10 MG TABLET. PO SCH (20:23)
[2020-06-02] MEDS: GABAPENTIN 400 MG CAPSULE. PO SCH (20:23)
[2020-06-02 22:50] VITALS: BP 121/78
--- NOTE | 2020-06-03 04:35 | NUR ---
Pt awake in bed at change of shift watching TV and playing game on her cell phone. Pt is A&Ox4, very pleasant, talkative and cooperative. VSS. Pt ate HS snack independently and took medications without difficulty. Pt up to bathroom independently, steady gait noted, denies dizziness. Pt slept decently during night, stating "I just miss my own bed at home." Lab called to inform unit that blood will not be ready till sometime later today, pt notified and verbalized understanding, stating "this always happens with my blood." Pt hopeful that after receiving blood she will be able to go home.
[2020-06-03 05:25] VITALS: BP 124/77
[2020-06-03] MEDS ORDERED: BETA CAROTENE PO SCH (09:00)
[2020-06-03] MEDS: LEVOTHYROXINE 75 MCG TABLET PO SCH (09:37)
[2020-06-03] MEDS: CETIRIZINE HCL 10 MG TABLET PO SCH (09:37)
[2020-06-03] MEDS: CYCLOBENZAPRINE 10 MG TABLET. PO SCH ×3 (09:37→20:55)
[2020-06-03] MEDS: FOLIC ACID 1 MG TABLET PO SCH (09:37)
[2020-06-03 10:39] VITALS: BP 115/64
[2020-06-03] MEDS ORDERED: GABAPENTIN 400 MG CAPSULE. PO SCH ×2 (12:00→17:00)
[2020-06-03] MEDS ORDERED: MILK THISTLE SEED EXTRACT 175 MG PO SCH (12:00)
[2020-06-03] MEDS: ASPIRIN 325 MG TABLET PO SCH (13:08)
[2020-06-03] MEDS: MULTIVITAMIN with MINERAL TABLET. PO SCH (13:09)
[2020-06-03] MEDS: GABAPENTIN 400 MG CAPSULE. PO SCH ×3 (13:09→20:55)
[2020-06-03] MEDS: SERTRALINE 25 MG TABLET. PO SCH (13:09)
--- NOTE | 2020-06-03 13:26 | HP ---
ADMIT DATE: 06/02/2020 HISTORY OF PRESENT ILLNESS: The patient is a 54-year-old female patient who was apparently seen at her route salesman and driver's office and lab work done on Wednesday showed that her hemoglobin was 6.6. Her route salesman and driver sent her to [facility] for blood transfusion. She stated that overall she is asymptomatic. She does get some shortness of breath when she is walking stairs, has aches and pains here and there, but generally feeling much better. According to her, her last blood transfusion was when she was at [facility]. She told me also that her persistent fossa ovalis closed about [address] Lozoya. 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 She is also known to have hypertension, hypothyroidism, migraine, sickle cell disease, and chronic lymphatic leukemia. PAST SURGICAL HISTORY: Significant for cholecystectomy, , hysterectomy, oophorectomy, and tonsillectomy as well as closure of her persistent fossa ovalis. MEDICATIONS: She is currently on following medications: She is on loratadine 10 mg daily, albuterol sulfate 2 puffs every 6 hours as needed, cyclobenzaprine 5 mg 3 times a day, Plavix 75 mg daily at noon, aspirin 325 mg daily. She is on ibuprofen 400 mg daily as needed for pain, gabapentin 400 mg at noon, gabapentin 100 mg at bedtime, gabapentin daily with supper. She is on sertraline 50 mg at noon. She is on Requip 0.25 to 0.5 mg at bedtime. She is on Letairis 5 mg daily with supper, levothyroxine sodium 75 mcg once a day. She is on beta carotene 10,000 units capsule, 15,000 units daily. She is on folic acid 1 mg daily, multivitamin 1 tablet once a day. She is on milk thistle seed extract 375 mg at noon. FAMILY HISTORY: Noncontributory. SOCIAL HISTORY: She is , does not smoke, drink alcohol or use any recreational drugs. REVIEW OF SYSTEMS: As per history of present illness. PHYSICAL EXAMINATION: GENERAL: On arrival to the Emergency Room, the patient was pale, cachectic, but no jaundice, cyanosis, or thyromegaly. No jugular venous distention. No lower limb edema. VITAL SIGNS: Her heart rate was 104, blood pressure was 127/79, temperature was 98, respiratory rate was 16, and oxygen saturation was 94%. HEAD, EYES, EARS, NOSE AND THROAT: Normocephalic, atraumatic. NECK: Supple. HEART: Showed normal first and second heart sounds. No gallop, rub, or murmur. CHEST: Clear to auscultation. No crepitation or rhonchi. ABDOMEN: Distended, soft, nontender. NEUROLOGIC: She is awake, alert, responding appropriately. All cranial nerves intact. EXTREMITIES: She moves extremities without difficulty. She ambulates without assistance or assistive devices. LABORATORY DATA: Her lab work on arrival showed a white cell count 12,700, hemoglobin was 6.5, hematocrit was 19, MCV 97, and platelet count 301,000 with a manual differential showed 30% polymorphs, 51% lymphocytes, 17% monocytes. Her chemistry showed a serum sodium 141, potassium 3.6, chloride 106, bicarbonate 23, anion gap of 6, BUN 7, creatinine 0.5, estimated GFR was 128 mL per minute. Her ionized calcium was 1.26, which is well within normal range. ASSESSMENT AND PLAN: In summary, 1. Severe anemia. The patient has sickle cell anemia. 2. Chronic lymphatic leukemia. 3. Hypertension. 4. Hypothyroidism. 5. Migraine headache. 6. The patient had had a stroke that has resolved. She has had her persistent fossa ovalis closed successfully about 3 weeks ago. Plan is to type and cross and transfuse at least 2 units of packed RBCs. JAYASHREE MADDOX MD DR: KAYLI/alexi JOB#: [id number] / [id number]
[2020-06-03 15:24] VITALS: BP 115/72
[2020-06-03] MEDS ORDERED: AMBRISENTAN 5 MG PO SCH (17:00)
--- NOTE | 2020-06-03 17:16 | PN ---
DATE: 06/03/2020 SUBJECTIVE: The patient is sitting at the edge of the bed comfortably, in no apparent distress. Does complain of some aches and pains, but otherwise, she is fine. Denied any chest pain or shortness of breath. Denied any dizziness or lightheadedness. She was referred by her soda jerker to come to the Emergency Room to be transfused. Unfortunately, she has multiple antibodies and is still waiting to find the appropriate packed RBCs for her PHYSICAL EXAMINATION: GENERAL: When I saw her this morning, she was pale, but no jaundice, cyanosis or thyromegaly. No jugular venous distention or limb edema. VITAL SIGNS: Her heart rate was 92, blood pressure 115/72, temperature was 98.3, respiratory rate was 18, and oxygen saturation was 92%. The rest of clinical exam is stable. ASSESSMENT AND PLAN: We have not ordered any labs this morning; however, we are waiting for it to receive 2 units of packed RBCs and decide on further management accordingly. JAYASHREE MADDOX MD DR: KAYLI/alexi JOB#: [id number] / [id number]
[2020-06-03 19:20] VITALS: BP 110/69
[2020-06-03] MEDS: rOPINIRole 0.25 MG TABLET. PO SCH (20:55)
[2020-06-03 23:40] VITALS: BP 113/70
[2020-06-04] VITALS (13 sets, daily range): BP systolic 97–120; BP diastolic 55–76
[2020-06-04 06:42] LABS: CALCIUM 8.9 mg/dL (8.5-10.1); CREATININE 0.6 mg/dL (0.6-1.0); POTASSIUM 3.9 mmol/L (3.5-5.1)
[2020-06-04 07:41] LABS: RED BLOOD COUNT 1.77 x10^6/uL (3.50-5.40); RED CELL DISTRIBUTION WIDTH 22.2 % (11.5-14.5); WHITE BLOOD COUNT 10.3 x10^3/uL (4.0-11.0)
[2020-06-04 07:53] LABS: HEMATOCRIT 17.6 % (36.0-47.0)
[2020-06-04] MEDS: LEVOTHYROXINE 75 MCG TABLET PO SCH (08:47)
[2020-06-04] MEDS: FOLIC ACID 1 MG TABLET PO SCH (08:47)
[2020-06-04] MEDS: CYCLOBENZAPRINE 10 MG TABLET. PO SCH (08:47)
[2020-06-04] MEDS: CETIRIZINE HCL 10 MG TABLET PO SCH (08:47)
[2020-06-04] MEDS: GABAPENTIN 400 MG CAPSULE. PO SCH (11:46)
[2020-06-04] MEDS: MULTIVITAMIN with MINERAL TABLET. PO SCH (11:46)
[2020-06-04] MEDS: ASPIRIN 325 MG TABLET PO SCH (11:46)
[2020-06-04] MEDS: SERTRALINE 25 MG TABLET. PO SCH (11:56)
--- NOTE | 2020-06-04 12:54 | NUR ---
Blood transfusion started at 1113. tubing primed with normal saline and then primed with blood transfusion 75 ml/hr pt monitored closely X15 minutes no reaction noted transfusion increased to 125 ml/hr .
[2020-06-04 15:20] LABS: HEMATOCRIT 22.7 % (36.0-47.0); HEMOGLOBIN 7.6 g/dL (12.0-15.5)
--- NOTE | 2020-06-04 16:28 | NUR ---
pt discharged a/ox4, vital signs stable, ambulated to vehicle, all questions answered. all belongings sent with patient. pt will follow up with DR Austin on 06/24, appt already scheduled.
== END 2020-06-04 16:22 | disposition still patient (30) ==
LOC: ER 11:21 → 1 SOUTH 15:43 → INTOOBSV 15:43
PROVIDERS: ADMIT Internal Medicine; ATTEND Internal Medicine
DX: D57.1 Sickle-cell disease without crisis (principal); D64.9 Anemia, unspecified; C91.10 Chronic lymphocytic leukemia of B-cell type not having achieved remission; I10 Essential (primary) hypertension; E03.9 Hypothyroidism, unspecified; G43.909 Migraine, unspecified, not intractable, without status migrainosus; Z86.73 Personal history of transient ischemic attack (TIA), and cerebral infarction without residual deficits; Z90.710 Acquired absence of both cervix and uterus; Z91.81 History of falling; Z90.49 Acquired absence of other specified parts of digestive tract; Z98.891 History of uterine scar from previous surgery; Z98.890 Other specified postprocedural states
CPT/HCPCS: 36415; 36430; 80047; 80048; 85014; 85018; 85025; 85027; 86850; 86870; 86900; 86901; 86922; 99284; G0378; P9016; G0379

== ENCOUNTER → 2020-09-17 | Outpatient (CLI) | payer MEDICARE ==
[2020-06-04 15:24] VITALS: BP 107/68
[~2020-09-17] MED LIST changes: +AMBR5TAB3 PO; +ASPI325T8 PO; +CLOP75TA57 PO; +GABA-587 PO; +LEVO75TA5 PO; +MILK175C4 PO; +MULT-245 PO; +[UNRECOGNIZED DRUG - CODE] PO
[2020-09-17 18:32] LABS: BASO # 0.1 x10^3/uL (0.0-0.2); BASO % 1 % (0-3); EOS % 1 % (0-3); LYMPH # 5.7 x10^3/uL (1.0-4.8); LYMPH % 62 % (24-48); MEAN CORPUSCULAR HEMOGLOBIN 32 pg (25-35); MEAN CORPUSCULAR HGB CONC 35 g/dL (31-37); MEAN CORPUSCULAR VOLUME 91 fL (79-100); MONO # 1.2 x10^3/uL (0.0-1.1); MONO % 13 % (0-9); NEUT # 2.1 x10^3uL (1.8-7.7); NEUT % 23 % (31-73); PLATELET COUNT 301 x10^3/uL (140-400); RED BLOOD COUNT 2.07 x10^6/uL (3.50-5.40); RED CELL DISTRIBUTION WIDTH 28.2 % (11.5-14.5); WHITE BLOOD COUNT 9.1 x10^3/uL (4.0-11.0)
[2020-09-17 18:41] LABS: ALBUMIN 4.4 g/dL (3.4-5.0); ALBUMIN/GLOBULIN RATIO 1.5 (1.0-1.7); CALCIUM 8.8 mg/dL (8.5-10.1); CREATININE 0.6 mg/dL (0.6-1.0); GFR 104.6; POTASSIUM 3.5 mmol/L (3.5-5.1); TOTAL BILIRUBIN 2.7 mg/dL (0.2-1.0); TOTAL PROTEIN 7.4 g/dL (6.4-8.2)
[2020-09-17 19:04] LABS: HEMOGLOBIN 6.6 g/dL (12.0-15.5)
[2020-09-17 19:05] LABS: HEMATOCRIT 18.7 % (36.0-47.0)
[2020-09-17 19:14] LABS: % EOS 1 % (0-5); % LYMPHS 67 % (24-48); % MONOS 11 % (0-10); % SEGS 21 % (35-66); NUCLEATED RBC 2
[2020-09-17 19:16] LABS: ANISOCYTOSIS MARKED
[2020-09-17 19:17] LABS: OVALOCYTES FEW; SICKLE CELLS MOD
[2020-09-17 19:18] LABS: PLT ESTIMATE ADEQUATE (ADEQUATE); POLYCHROMASIA SLIGHT
== END ==
LOC: LAB 17:32
PROVIDERS: ATTEND Internal Medicine Hematology & Oncology
DX: D57.1 Sickle-cell disease without crisis (principal)
CPT/HCPCS: 36415; 80053; 83010; 83615; 85007; 85025; 85045

== ENCOUNTER → 2020-09-26 | Outpatient (CLI) | payer MEDICARE ==
[2020-06-04 15:24] VITALS: BP 107/68
[2020-09-26 14:30] LABS: BASO # 0.1 x10^3/uL (0.0-0.2); BASO % 1 % (0-3); EOS # 0.1 x10^3/uL (0.0-0.7); EOS % 1 % (0-3); LYMPH # 5.2 x10^3/uL (1.0-4.8); LYMPH % 60 % (24-48); MEAN CORPUSCULAR HEMOGLOBIN 31 pg (25-35); MEAN CORPUSCULAR HGB CONC 33 g/dL (31-37); MEAN CORPUSCULAR VOLUME 92 fL (79-100); MONO # 1.2 x10^3/uL (0.0-1.1); MONO % 14 % (0-9); NEUT # 2.1 x10^3uL (1.8-7.7); NEUT % 24 % (31-73); PLATELET COUNT 323 x10^3/uL (140-400); RED BLOOD COUNT 2.05 x10^6/uL (3.50-5.40); WHITE BLOOD COUNT 8.7 x10^3/uL (4.0-11.0)
[2020-09-26 14:40] LABS: HEMOGLOBIN 6.3 g/dL (12.0-15.5)
[2020-09-26 14:41] LABS: HEMATOCRIT 18.9 % (36.0-47.0)
[2020-09-26 19:25] LABS: % LYMPHS 62 % (24-48); % MONOS 10 % (0-10); % SEGS 24 % (35-66)
[2020-09-26 19:26] LABS: NUCLEATED RBC 4
[2020-09-26 19:29] LABS: ANISOCYTOSIS MOD; PLT ESTIMATE ADEQUATE (ADEQUATE); POIKILOCYTOSIS MOD
[2020-09-26 19:31] LABS: POLYCHROMASIA SLIGHT; SICKLE CELLS MOD
== END ==
LOC: LAB 13:11
PROVIDERS: ATTEND Internal Medicine Hematology & Oncology
DX: D57.1 Sickle-cell disease without crisis (principal)
CPT/HCPCS: 36415; 85007; 85025

== ENCOUNTER → 2020-10-02 | Outpatient (CLI) | payer MEDICARE ==
[2020-06-04 15:24] VITALS: BP 107/68
[2020-10-02 15:03] LABS: ALBUMIN 4.2 g/dL (3.4-5.0); ALBUMIN/GLOBULIN RATIO 1.4 (1.0-1.7); CALCIUM 8.4 mg/dL (8.5-10.1); CREATININE 0.6 mg/dL (0.6-1.0); GFR 104.6; POTASSIUM 3.9 mmol/L (3.5-5.1); TOTAL BILIRUBIN 2.2 mg/dL (0.2-1.0); TOTAL PROTEIN 7.1 g/dL (6.4-8.2)
[2020-10-02 15:05] LABS: BASO # 0.1 x10^3/uL (0.0-0.2); BASO % 1 % (0-3); EOS % 0 % (0-3); LYMPH # 5.2 x10^3/uL (1.0-4.8); LYMPH % 59 % (24-48); MEAN CORPUSCULAR HEMOGLOBIN 32 pg (25-35); MEAN CORPUSCULAR HGB CONC 35 g/dL (31-37); MEAN CORPUSCULAR VOLUME 91 fL (79-100); MONO # 1.3 x10^3/uL (0.0-1.1); MONO % 15 % (0-9); NEUT # 2.2 x10^3uL (1.8-7.7); NEUT % 24 % (31-73); PLATELET COUNT 291 x10^3/uL (140-400); RED BLOOD COUNT 1.81 x10^6/uL (3.50-5.40); WHITE BLOOD COUNT 8.9 x10^3/uL (4.0-11.0)
[2020-10-02 15:17] LABS: HEMOGLOBIN 5.8 g/dL (12.0-15.5)
[2020-10-02 15:18] LABS: HEMATOCRIT 16.5 % (36.0-47.0)
[2020-10-02 18:32] LABS: PLT ESTIMATE ADEQUATE (ADEQUATE)
[2020-10-02 18:34] LABS: POLYCHROMASIA SLIGHT
[2020-10-02 18:35] LABS: ANISOCYTOSIS SLIGHT; OVALOCYTES PRESENT; POIKILOCYTOSIS MOD; SICKLE CELLS PRESENT
== END ==
LOC: LAB 14:07
PROVIDERS: ATTEND Internal Medicine Hematology & Oncology
DX: D57.1 Sickle-cell disease without crisis (principal)
CPT/HCPCS: 36415; 80053; 83010; 83615; 85025; 85045

== ENCOUNTER → 2020-11-06 | Outpatient (CLI) | payer MEDICARE ==
[2020-06-04 15:24] VITALS: BP 107/68
[2020-11-06 14:55] LABS: BASO % 1 % (0-3); EOS % 0 % (0-3); LYMPH # 2.7 x10^3/uL (1.0-4.8); LYMPH % 54 % (24-48); MEAN CORPUSCULAR HEMOGLOBIN 34 pg (25-35); MEAN CORPUSCULAR HGB CONC 36 g/dL (31-37); MEAN CORPUSCULAR VOLUME 93 fL (79-100); MONO # 0.8 x10^3/uL (0.0-1.1); MONO % 15 % (0-9); NEUT # 1.5 x10^3uL (1.8-7.7); NEUT % 30 % (31-73); PLATELET COUNT 301 x10^3/uL (140-400); RED BLOOD COUNT 1.83 x10^6/uL (3.50-5.40); RED CELL DISTRIBUTION WIDTH 34.5 % (11.5-14.5); WHITE BLOOD COUNT 5.1 x10^3/uL (4.0-11.0)
[2020-11-06 14:56] LABS: ALBUMIN 4.2 g/dL (3.4-5.0); ALBUMIN/GLOBULIN RATIO 1.4 (1.0-1.7); CALCIUM 8.5 mg/dL (8.5-10.1); CREATININE 0.6 mg/dL (0.6-1.0); GFR 104.6; POTASSIUM 3.9 mmol/L (3.5-5.1); TOTAL BILIRUBIN 2.9 mg/dL (0.2-1.0); TOTAL PROTEIN 7.1 g/dL (6.4-8.2)
[2020-11-06 15:15] LABS: HEMOGLOBIN 6.1 g/dL (12.0-15.5)
[2020-11-06 19:08] LABS: % ATYL 4 % (0-0); % BANDS 1 % (0-9); % LYMPHS 65 % (24-48); % METAS 1 % (0-0); % MONOS 5 % (0-10); % MYELOS 1 % (0-0); % SEGS 23 % (35-66); NUCLEATED RBC 42
[2020-11-06 19:09] LABS: PLT ESTIMATE ADEQUATE (ADEQUATE)
[2020-11-06 19:10] LABS: ANISOCYTOSIS MARKED; POIKILOCYTOSIS MARKED; POLYCHROMASIA PRESENT
[2020-11-06 19:11] LABS: OVALOCYTES PRESENT; SICKLE CELLS PRESENT
== END ==
LOC: LAB 14:11
PROVIDERS: ATTEND Internal Medicine Hematology & Oncology
DX: D57.1 Sickle-cell disease without crisis (principal)
CPT/HCPCS: 36415; 80053; 83615; 85007; 85025

== ENCOUNTER 2021-03-18 13:54 | Emergency (ER) | payer MEDICARE ==
[~2021-03-18] VITALS: Ht 152.4 cm; Wt 50.4 kg
--- NOTE | 2021-03-18 14:50 | PHYS DOC ---
Past History Past Medical History: Hypertension, Hypothyroid, Migraines, Sickle Cell Disease, Stroke, Other Additional Past Medical Histor: RECENTLY DIAGNOSED LEUKEMIA (NIKA LOPES DO) Past Surgical History: Cholecystectomy, , Hysterectomy, Oophorectomy, Tonsillectomy (NIKA LOPES DO) Alcohol Use: None Drug Use: None (NIKA LOPES DO) Adult General Chief Complaint Chief Complaint: ALTERED MENTAL STATUS HPI HPI Patient is a 55-year-old female presenting with for altered mental status. They presented via POV, patient denies any issues whatsoever. however accompanies patient and assists with medical history. 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 Reports she has been at baseline health with consistent outpatient follow-ups but reports over the past 2 weeks she is not been acting herself. There was no obvious trauma, ingestion, significant medication change, sick contact or recent travel. reports in past 72 hours patient has " been completely off her rocker" making extremely impulsive decisions. has numerous examples of impulsivity and behaviors which were not typical for patient. In the last 72 hours, patient has tried to buy $1700 worth of Botox. She has attempted to buy a car. She was found yesterday evening at the airport in her [facility] waiting for a flight for which she did not purchase. Patient also recently drove at night to [place] and subsequently called EMS for her to be transported to [facility] for evaluation of a headache, all of this without telling her notifying any family members. reports she is typically at her baseline and performs all ADLs. Admits only mental health history of depression for which she is on SSRI and sleep issues for which she is on trazodone. She has never been diagnosed with bipolar had any type of manic behavior in the past and has never been admitted to an inpatient psychiatric facility (NIKA LOPES DO) Review of Systems Review of Systems Fourteen body systems of review of systems have been reviewed. See HPI for pertinent positives and negative responses, other carson all other systems are negative, non-pertinent or non-contributory (NIKA LOPES DO) Allergies Allergies Allergies Coded Allergies Type Severity Reaction Last Updated Verified prednisone Allergy Unknown 03/18/21 Yes fentanyl Adverse Reaction Severe SI 03/18/21 Yes Uncoded Allergies Type Severity Reaction Last Updated Verified STEROID Allergy Unknown 06/02/20 (NIKA LOPES DO) Physical Exam Physical Exam Constitutional: Well developed, well nourished, no acute distress, non-toxic appearance. HENT: Normocephalic, atraumatic, bilateral external ears normal, oropharynx moist, no oral exudates, nose normal. Eyes: PERRLA, EOMI, conjunctiva normal, no discharge. Neck: Normal range of motion, no tenderness, supple, no stridor. Cardiovascular: Heart rate regular, sinus rhythm, no murmurs rubs or gallops Lungs & Thorax: Bilateral breath sounds clear to auscultation Abdomen: Bowel sounds normal, soft, no tenderness, no masses, no pulsatile masses. Nonsurgical abdomen, no peritoneal signs Skin: Warm, dry, no erythema, no rash. Back: No tenderness, no CVA tenderness. Extremities: No tenderness, no cyanosis, no clubbing, ROM intact, no edema. Neurologic: Alert and oriented X 3, grossly normal motor & sensory function, no focal deficits noted. Psychologic: Affect normal, mood normal. (NIKA LOPES DO) Current Patient Data Vital Signs Vital Signs Date Time Temp Pulse Resp B/P (MAP) Pulse Ox O2 Delivery O2 Flow Rate FiO2 03/18/21 13:55 98.5 94 18 122/73 (89) 96 Room Air Vital Signs Date Time Temp Pulse Resp B/P (MAP) Pulse Ox O2 Delivery O2 Flow Rate FiO2 03/18/21 16:37 83 18 144/74 (97) 98 Room Air 03/18/21 13:55 98.5 Lab Results Laboratory Tests Test 03/18/21 15:03 03/18/21 15:05 03/18/21 15:06 03/18/21 15:10 Urine Collection Type Void Urine Color Yellow Urine Clarity Hazy Urine pH 6.0 Urine Specific [place] 1.010 Urine Protein Neg Urine Glucose (UA) Neg mg/dL Urine Ketones (Stick) Trace mg/dL Urine Blood Neg Urine Nitrite Neg Urine Bilirubin Small Urine Urobilinogen Dipstick 1.0 mg/dL Urine Leukocyte Esterase Large Urine RBC Occ /HPF Urine WBC >40 /HPF Urine Squamous Epithelial Cells Mod /LPF Urine Bacteria Few /HPF Urine Mucus Slight /LPF Urine Opiates Screen Pos Urine Methadone Screen Neg Urine Barbiturates Neg Urine Phencyclidine Screen Neg Urine Amphetamine/Methamphetamine Neg Urine Benzodiazepines Screen Neg Urine Cocaine Screen Neg Urine Cannabinoids Screen Neg Urine Ethyl Alcohol Neg White Blood Count 6.5 x10^3/uL Red Blood Count 2.84 x10^6/uL Hemoglobin 8.6 g/dL Hematocrit 25.7 % Mean Corpuscular Volume 90 fL Mean Corpuscular Hemoglobin 30 pg Mean Corpuscular Hemoglobin Concent 33 g/dL Red Cell Distribution Width 18.9 % Platelet Count 418 x10^3/uL Neutrophils (%) (Auto) 18 % Lymphocytes (%) (Auto) 58 % Monocytes (%) (Auto) 22 % Eosinophils (%) (Auto) 1 % Basophils (%) (Auto) 2 % Neutrophils # (Auto) 1.2 x10^3uL Lymphocytes # (Auto) 3.8 x10^3/uL Monocytes # (Auto) 1.5 x10^3/uL Eosinophils # (Auto) 0.1 x10^3/uL Basophils # (Auto) 0.1 x10^3/uL Sodium Level 143 mmol/L Potassium Level 3.2 mmol/L Chloride Level 107 mmol/L Carbon Dioxide Level 24 mmol/L Anion Gap 12 Blood Urea Nitrogen 7 mg/dL Creatinine 0.6 mg/dL Estimated GFR (Cockcroft-Gault) 104.6 BUN/Creatinine Ratio 12 Glucose Level 99 mg/dL Lactic Acid Level 0.5 mmol/L Calcium Level 9.1 mg/dL Total Bilirubin 1.5 mg/dL Aspartate Amino Transf (AST/SGOT) 46 U/L Alanine Aminotransferase (ALT/SGPT) 25 U/L Alkaline Phosphatase 109 U/L Ammonia 36 mcmol/L Troponin I High Sensitivity 9 ng/L Total Protein 6.7 g/dL Albumin 4.2 g/dL Albumin/Globulin Ratio 1.7 Salicylates Level < 2.8 mg/dL Salicylate Last Dose Date Unknown Salicylate Last Dose Time Unknown Ethyl Alcohol Level < 10 mg/dL Glucose (Fingerstick) 101 mg/dL Bedside Urine HCG, Qualitative hcg negative Current Medications Medications (Trade) Dose Ordered Sig/Jovon Route PRN Reason Start Time Stop Time Status Last Admin Dose Admin Iohexol (Omnipaque 300 Mg/ml) 75 ml 1X ONCE IV 03/18/21 15:00 03/18/21 15:01 DC 03/18/21 15:00 Nitrofurantoin Macrocrystals (Macrobid) 100 mg 1X ONCE PO 03/18/21 16:30 03/18/21 16:31 DC 03/18/21 16:44 (NIKA LOPES DO) EKG EKG EKG ordered and interpreted by myself 1503 hrs. as sinus rhythm at 76 bpm, un remarkable intervals, no axis deviation, no obvious ischemic findings, no STEMI (NIKA LOPES DO) EKG My interpretation EKG #2 shows a sinus rhythm at 89 bpm. No acute morphology. No significant interval change from prior EKG time is of EKG is 2207 hrs. (ROMERO QUIROZ MD) Radiology/Procedures Radiology/Procedures EXAM: Head CT with and without contrast. HISTORY: Altered mental status. Leukemia. TECHNIQUE: Computed tomographic images of the head were obtained prior to and following the administration of intravenous contrast. *One or more of the following individualized dose reduction techniques were utilized for this examination: 1. Automated exposure control. 2. Adjustment of the mA and/or kV according to patient size. 3. Use of iterative reconstruction technique. COMPARISON: 02/24/2020 and 08/10/2017. FINDINGS: There is no acute or subacute extra-axial or intraparenchymal hemorrhage. There is no mass effect or midline shift. There is no hydrocephalus. There is a 5 mm enhancing lesion within the right parieto-occipital junction cortex or subcortical white matter.. The mehta-white matter differential pattern is intact. There is a small retention cyst or mucosal thickening involving the anterior right ethmoid sinus. The mastoid air cells are clear. There are multiple lucent lesions within the calv arium. No fracture is seen. IMPRESSION: 1. No acute intracranial finding. Note is made that MRI is more sensitive for acute infarction. 2. 5 mm enhancing lesion within the right parietal occipital junction cortex or subcortical white matter. This may be neoplastic or due to a small developmental venous anomaly. This can be better characterized with an MRI with and without contrast. No additional enhancing lesion is seen. 3. Multiple small lucent lesions throughout the calvarium. These are not significantly changed compared to the study performed 08/10/2017. The greater than 3 year course stability favors multiple hemangiomas or treated lytic lesions. Electronically signed by: Ryann Augustin MD (03/18/2021 3:42 PM) [id number] ////////////////////////////////// EXAM: Chest, single view. HISTORY: Altered mental status. COMPARISON: 04/03/2020 FINDINGS: A frontal view of the chest is obtained. There is mild chronic appearing interstitial prominence. There is no consolidation, pleural effusion or pneumothorax. There is stable enlargement of the heart. There is an atrial septal closure device overlying the heart. IMPRESSION: 1. Cardiomegaly. 2. Chronic appearing interstitial changes. Electronically signed by: Ryann Augustin MD (03/18/2021 3:44 PM) [id number] (NIKA LOPES DO) Radiology/[place] [address] IMAGING REPORT Signed PATIENT: JERRY OSBORNE LACCOUNT: [id number] : 1965 LOCATION: ER AGE: 55 SEX: F EXAM STATUS: REG ER ORD. PHYSICIAN: NIKA LOPES DO REASON: ALTERED MENTAL STATUS, HISTORY LEUKEMIA WITH SUSPECT METS PROCEDURE: CT HEAD WO/W CONTRAST EXAM: Head CT with and without contrast. HISTORY: Altered mental status. Leukemia. TECHNIQUE: Computed tomographic images of the head were obtained prior to and following the administration of intravenous contrast. *One or more of the following individualized dose reduction techniques were utilized for this examination: 1. Automated exposure control. 2. Adjustment of the mA and/or kV according to patient size. 3. Use of iterative reconstruction technique. COMPARISON: 02/24/2020 and 08/10/2017. FINDINGS: There is no acute or subacute extra-axial or intraparenchymal hemorrhage. There is no mass effect or midline shift. There is no hydrocephalus. There is a 5 mm enhancing lesion within the right parieto-occipital junction cortex or subcortical white matter.. The mehta-white matter differential pattern is intact. There is a small retention cyst or mucosal thickening involving the anterior right ethmoid sinus. The mastoid air cells are clear. There are multiple lucent lesions within the calvarium. No fracture is seen. IMPRESSION: 1. No acute intracranial finding. Note is made that MRI is more sensitive for acute infarction. 2. 5 mm enhancing lesion within the right parietal occipital junction cortex or subcortical white matter. This may be neoplastic or due to a small developmental venous anomaly. This can be better characterized with an MRI with and without contrast. No additional enhancing lesion is seen. 3. Multiple small lucent lesions throughout the calvarium. These are not significantly changed compared to the study performed 08/10/2017. The greater than 3 year course stability favors multiple hemangiomas or treated lytic lesions. Electronically signed by: Ryann Augustin MD (03/18/2021 3:42 PM) [id number] DICTATED AND SIGNED BY: RYANN AUGUSTIN MD DATE: 03/18/21 1539 CC: NIKA LOPES DO; YELENA MONTESINOS ~MTH0 [address] [address] IMAGING REPORT Signed PATIENT: JERRY OSBORNE: [id number] : 1965 LOCATION: ER AGE: 55 SEX: F EXAM STATUS: REG ER ORD. PHYSICIAN: NIKA LOPES DO REASON: ALTERED MENTAL STATUS PROCEDURE: CHEST AP ONLY EXAM: Chest, single view. HISTORY: Altered mental status. COMPARISON: 04/03/2020 FINDINGS: A frontal view of the chest is obtained. There is mild chronic appearing interstitial prominence. There is no consolidation, pleural effusion or pneumothorax. There is stable enlargement of the heart. There is an atrial septal closure device overlying the heart. IMPRESSION: 1. Cardiomegaly. 2. Chronic appearing interstitial changes. Electronically signed by: Ryann Augustin MD (03/18/2021 3:44 PM) [id number] DICTATED AND SIGNED BY: RYANN AUGUSTIN MD DATE: 03/18/21 2216 CC: NIKA LOPES DO; YELENA MONTESINOS ~MTH0 [address] [address] IMAGING REPORT Signed PATIENT: JERRY OSBORNE: [id number] : 1965 LOCATION: ER AGE: 55 SEX: F EXAM STATUS: REG ER ORD. PHYSICIAN: NIKA LOPES DO REASON: ALTERED MENTAL STATUS PROCEDURE: CHEST AP ONLY EXAM: Chest, single view. HISTORY: Altered mental status. COMPARISON: 04/03/2020 FINDINGS: A frontal view of the chest is obtained. There is mild chronic appearing interstitial prominence. There is no consolidation, pleural effusion or pneumothorax. There is stable enlargement of the heart. There is an atrial septal closure device overlying the heart. IMPRESSION: 1. Cardiomegaly. 2. Chronic appearing interstitial changes. Electronically signed by: Ryann Augustin MD (03/18/2021 3:44 PM) [id number] DICTATED AND SIGNED BY: RYANN AUGUSTIN MD DATE: 03/18/21 1543 CC: NIKA LOPES DO; YELENA MONTESINOS ~MTH0 0 (ROMERO QUIROZ MD) Heart Score C/O Chest Pain: No HEART Score for Chest Pain: HEART Score for Chest Pain Response (Comments) Value History Slighlty/Non-Suspicious 0 ECG Normal 0 Age >45 - < 65 1 Risk Factors 1 or 2 Risk Factors 1 Troponin < Normal Limit 0 Total 2 Risk Factors: Risk Factors: DM, Current or recent (<one month) smoker, HTN, HLP, family history of CAD, obesity. Risk Scores: Risk Factors: DM, Current or recent (<one month) smoker, HTN, HLP, family his tory of CAD, obesity. (NIKA LOPES DO) Course & Med Decision Making Course & Med Decision Making ABCs unremarkable HPI physical exam and comprehensive ER work-up obtained concerning for suspected UTI and a concerning 5 mm right parietal occipital brain lesion (mets given recent diagnosis of leukemia?) Patient ambulatory in no obvious distress, AAOx3 and GCS 15. With that said, patient did demonstrate tangential thought process and at times rapid speech stating that she needed to leave so she could catch a flight later tonight, she in fact does not have a flight ticket for tonight I contacted Pat team and discussed case. Joint decision made to have baseline behavioral health evaluation in a patient who also has concerning underlying infectious/medical issues such as UTI and brain lesion of unknown etiology that could be contributory to her presentation At this time in care, patient pending PET team evaluation. My shift is ending. Comprehensive signout given to oncoming physician, Dr. Quiroz. Please defer to his documentation regarding future care of patient in ER setting ////////////////////////////// I assumed care of patient after comprehensive signout from ER physician. I am aware of patient who is ending transfer at this time as I saw her and evaluated her yesterday Patient case discussed with [facility] attending who ultimately accepted patient in transfer for admission and further inpatient medical evaluation Patient actively being treated for UTI and has received 1 g Rocephin Patient pending further evaluation of new brain mass in setting of history of leukemia, MRI with and without head pending at accepting facility Manic/impulsive behavior pending further medical evaluation and rule out of other infectious processes Patient and updated on plan for transfer and amenable. All questions and concerns addressed prior to ER departure (NIKA LOPES DO) Course & Med Decision Making See Zain rFancis chart for details prior shift change. See PAT exam. Pt. follows with [facility] as primary. Pt. presentation, testing and tx. plan discussed with Dr. Arenas. Will accept pt in transfer. No beds available for transfer tonight. Plan transfer in AM to [facility] where her oncologist wet pour mixer available. MRI in a.m. Treat UTI Pt. sleeping through the night. Complaints of itching this AM after Morphine. Given Benadryl and Doxepine.` Still plan for transfer to [facility] for MRI with and without constrast, with admit PMC. . Endorsed to Dr. Lopes at [facility] change. Impression: 1. Altered Mental Status 2. Anemia Hgb 8.6 3. UTI 4. Mild Hypokalemia 3.2 5. Mild Elevation Giovanni 1.4, AST 46 6. 5 mm enhancing lesion Rt., Parietal occipital Junction. - ( Radiology recommend MRI with and with out contrast) 7. Muiltiple Small Lucent Lesions Throughout Calvarium- similar CT 08/10/2017 - Hemagiomas vs Lytic lesions. 8. Recent Manic Behaviours and Confusion 9. Hx. Leukemia - Dx.- Tx at [facility] 10.Hx. Sickle Cell Disorder (ROMERO QUIROZ MD) Dragon Disclaimer Dragon Disclaimer This electronic medical record was generated, in whole or in part, using a voice recognition dictation system. (NIKA LOPES DO) Departure Departure: Impression: Primary Impression: Brain mass Additional Impressions: History of leukemia UTI (urinary tract infection) Manic behavior Disposition: [facility] ([facility]) Admitting Physician: Other (DR ALVAREZ) (NIKA LOPES DO) Condition: STABLE Referrals: YELENA MONTESINOS (PCP) Problem Qualifiers NIKA LOPES DO Mar 18, 2021 14:50 ROMERO QUIROZ MD Mar 18, 2021 18:25
[2021-03-18] MEDS ORDERED: IOHEXOL 300 MG/ML 75 ML VIAL. IV ONE (15:00)
[2021-03-18 15:29] LABS: BASO # 0.1 x10^3/uL (0.0-0.2); BASO % 2 % (0-3); EOS # 0.1 x10^3/uL (0.0-0.7); EOS % 1 % (0-3); HEMATOCRIT 25.7 % (36.0-47.0); HEMOGLOBIN 8.6 g/dL (12.0-15.5); LYMPH # 3.8 x10^3/uL (1.0-4.8); LYMPH % 58 % (24-48); MEAN CORPUSCULAR HEMOGLOBIN 30 pg (25-35); MEAN CORPUSCULAR HGB CONC 33 g/dL (31-37); MEAN CORPUSCULAR VOLUME 90 fL (79-100); MONO # 1.5 x10^3/uL (0.0-1.1); MONO % 22 % (0-9); NEUT # 1.2 x10^3uL (1.8-7.7); NEUT % 18 % (31-73); PLATELET COUNT 418 x10^3/uL (140-400); RED BLOOD COUNT 2.84 x10^6/uL (3.50-5.40); RED CELL DISTRIBUTION WIDTH 18.9 % (11.5-14.5); WHITE BLOOD COUNT 6.5 x10^3/uL (4.0-11.0)
--- NOTE | 2021-03-18 15:34 | EKG ---
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
[2021-03-18 15:44] LABS: CALCIUM 9.1 mg/dL (8.5-10.1); CREATININE 0.6 mg/dL (0.6-1.0); GFR 104.6; POTASSIUM 3.2 mmol/L (3.5-5.1)
--- NOTE | 2021-03-18 15:45 | RAD ---
EXAM: Head CT with and without contrast. HISTORY: Altered mental status. Leukemia. TECHNIQUE: Computed tomographic images of the head were obtained prior to and following the administr ation of intravenous contrast. *One or more of the following individualized dose reduction techniques were utilized for this examina tion: 1. Automated exposure control. 2. Adjustment of the mA and/or kV according to patient size. 3. Use of iterative reconstruction technique. COMPARISON: 02/24/2020 and 08/10/2017. FINDINGS: There is no acute or subacute extra-axial or intraparenchymal hemorrhage. There is no mass effect or midline shift. There is no hydrocephalus. There is a 5 mm enhancing lesion within the right parieto-occipital junction cortex or subcortical white matter.. The mehta-white matter differential pattern is intact. There is a small retention cyst or mucosal thic kening involving the anterior right ethmoid sinus. The mastoid air cells are clear. There are multipl e lucent lesions within the calvarium. No fracture is seen. IMPRESSION: 1. No acute intracranial finding. Note is made that MRI is more sensitive for acute infarction. 2. 5 mm enhancing lesion within the right parietal occipital junction cortex or subcortical white mat ter. This may be neoplastic or due to a small developmental venous anomaly. This can be better charac terized with an MRI with and without contrast. No additional enhancing lesion is seen. 3. Multiple small lucent lesions throughout the calvarium. These are not significantly changed compar ed to the study performed 08/10/2017. The greater than 3 year course stability favors multiple hemangi omas or treated lytic lesions. Electronically signed by: Ryann Santos MD (03/18/2021 3:42 PM) [id number]
[2021-03-18 15:47] LABS: ALBUMIN 4.2 g/dL (3.4-5.0); ALBUMIN/GLOBULIN RATIO 1.7 (1.0-1.7); TOTAL BILIRUBIN 1.5 mg/dL (0.2-1.0); TOTAL PROTEIN 6.7 g/dL (6.4-8.2)
--- NOTE | 2021-03-18 15:47 | RAD ---
EXAM: Chest, single view. HISTORY: Altered mental status. COMPARISON: 04/03/2020 FINDINGS: A frontal view of the chest is obtained. There is mild chronic appearing interstitial promi nence. There is no consolidation, pleural effusion or pneumothorax. There is stable enlargement of th e heart. There is an atrial septal closure device overlying the heart. IMPRESSION: 1. Cardiomegaly. 2. Chronic appearing interstitial changes. Electronically signed by: Ryann Santos MD (03/18/2021 3:44 PM) [id number]
[2021-03-18 15:59] LABS: BARBITURATES NEG (NEG); BENZODIAZEPINES NEG (NEG); CANNABINOIDS NEG (NEG); COCAINE NEG (NEG); METHADONE NEG (NEG); OPIATES POS (NEG); PHENCYCLIDINE NEG (NEG)
[2021-03-18 16:02] LABS: SALIC < 2.8 mg/dL (2.8-20.0)
[2021-03-18 16:03] LABS: ETHANOL < 10 mg/dL (0-10)
[2021-03-18 16:03] LABS: AMPHETAMINE/METHAMPHETAMINE NEG (NEG)
[2021-03-18 16:08] LABS: BACTERIA,URINE FEW /HPF (0-FEW); BILIRUBIN,URINE SMALL (NEG); CLARITY,URINE HAZY; COLOR,URINE YELLOW; GLUCOSE,URINE NEG (NEG); NITRITE,URINE NEG (NEG); RBC,URINE OCC /HPF (0-2); SQUAMOUS EPITHELIAL CELL,UR MOD /LPF; WBC,URINE >40 /HPF (0-4)
[2021-03-18] MEDS ORDERED: NITROFURANTOIN MONOHYD/M-CRYST 100 MG CAPSULE. PO ONE (16:30)
[2021-03-18] MEDS ORDERED: MORPHINE SULFATE 10 MG/ML SYRINGE. SQ ONE (18:30)
[2021-03-18] MEDS ORDERED: ONDANSETRON PF 4 MG/2 ML VIAL. IVP ONE (18:30)
[2021-03-18] MEDS ORDERED: IV NORMAL SALINE 50ML 50 ML ONE (19:37)
[2021-03-18] MEDS ORDERED: cefTRIAXone SODIUM 1 GM VIAL ONE (19:38)
[2021-03-18] MEDS ORDERED: diphenhydrAMINE HCL 25 MG CAPSULE PO ONE (20:15)
[2021-03-19] MEDS ORDERED: ACETAMINOPHEN 500 MG TABLET PO ONE (03:45)
[2021-03-19] MEDS ORDERED: DOXEPIN HCL 25 MG CAPSULE PO SCH (04:00)
--- NOTE | 2021-03-19 07:36 | EKG ---
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
[2021-03-19] MEDS ORDERED: POTASSIUM CHLORIDE 20 MEQ TABLET.ER. PO ONE (10:15)
[2021-03-19 10:57] LABS: CALCIUM 8.9 mg/dL (8.5-10.1); CREATININE 0.6 mg/dL (0.6-1.0); GFR 104.6; POTASSIUM 3.8 mmol/L (3.5-5.1)
[2021-03-19] MEDS ORDERED: QUEtiapine 25 MG TABLET. PO SCH (11:00)
[2021-03-19 11:02] LABS: BASO # 0.1 x10^3/uL (0.0-0.2); BASO % 1 % (0-3); EOS # 0.1 x10^3/uL (0.0-0.7); EOS % 2 % (0-3); HEMATOCRIT 23.3 % (36.0-47.0); HEMOGLOBIN 7.8 g/dL (12.0-15.5); LYMPH # 3.3 x10^3/uL (1.0-4.8); LYMPH % 49 % (24-48); MEAN CORPUSCULAR HEMOGLOBIN 31 pg (25-35); MEAN CORPUSCULAR HGB CONC 34 g/dL (31-37); MEAN CORPUSCULAR VOLUME 91 fL (79-100); MONO # 1.3 x10^3/uL (0.0-1.1); MONO % 19 % (0-9); NEUT % 29 % (31-73); PLATELET COUNT 385 x10^3/uL (140-400); RED BLOOD COUNT 2.57 x10^6/uL (3.50-5.40); RED CELL DISTRIBUTION WIDTH 19.4 % (11.5-14.5); WHITE BLOOD COUNT 6.8 x10^3/uL (4.0-11.0)
[2021-03-19 12:39] VITALS: BP 117/59
== END 2021-03-19 13:36 | disposition short-term general hospital (02) ==
LOC: ER 13:54
DX: G93.89 Other specified disorders of brain (principal); N39.0 Urinary tract infection, site not specified; D64.9 Anemia, unspecified; R79.89 Other specified abnormal findings of blood chemistry; F30.9 Manic episode, unspecified; I10 Essential (primary) hypertension; E03.9 Hypothyroidism, unspecified; G43.909 Migraine, unspecified, not intractable, without status migrainosus; Z20.822 Contact with and (suspected) exposure to COVID-19; Z85.6 Personal history of leukemia; Z86.73 Personal history of transient ischemic attack (TIA), and cerebral infarction without residual deficits; Z88.8 Allergy status to other drugs, medicaments and biological substances
CPT/HCPCS: 36415; 70470; 71045; 80048; 80053; 80307; 80329; 81001; 81025; 82140; 82947; 83605; 84484; 85025; 86703; 86705; 86709; 86803; 87040; 87086; 87340; 87426; 93005; 96365; 96372; 96375; 99285; G0480; J0696; J2270; J2405; Q0163; Q9967; U0003

== ENCOUNTER 2021-04-17 18:39 | Emergency (ER) | payer MEDICARE ==
[~2021-04-17] VITALS: Ht 152.4 cm; Wt 50.4 kg
[2021-04-17 18:46] VITALS: BP 132/87
[2021-04-17] MEDS ORDERED: BUTA1TAB23 PO (19:06)
[2021-04-17] MEDS ORDERED: ONDA4TAB12 PO (19:06)
--- NOTE | 2021-04-17 19:07 | PHYS DOC ---
Past History Past Medical History: Hypertension, Hypothyroid, Migraines, Sickle Cell Disease, Stroke, Other Additional Past Medical Histor: RECENTLY DIAGNOSED LEUKEMIA; pulm HTN; lesion on brain Past Surgical History: Cholecystectomy, , Hysterectomy, Oophorectomy, Tonsillectomy, Other Additional Past Surgical Histo: hole in heart repaired; ablation of uterus Alcohol Use: Occasionally Drug Use: None General Adult EDM: Chief Complaint: HEADACHE HPI: HPI: Patient is a [age] year old [sex] who presents with [] Review of Systems: Review of Systems: Constitutional: Denies fever or chills Eyes: Denies redness or eye pain HENT: Denies nasal congestion or sore throat Respiratory: Denies cough or shortness of breath Cardiovascular: Denies chest pain or palpitations GI: Denies abdominal pain, nausea, or vomiting : Denies dysuria or hematuria Musculoskeletal: Denies back pain or joint pain Integument: Denies rash or skin lesions Neurologic: Denies headache, focal weakness or sensory changes Complete systems were reviewed and found to be within normal limits, except as documented in this note. Allergies: Allergies: Allergies Coded Allergies Type Severity Reaction Last Updated Verified prednisone Allergy Unknown 03/18/21 Yes fentanyl Adverse Reaction Severe SI 03/18/21 Yes Uncoded Allergies Type Severity Reaction Last Updated Verified STEROID Allergy Unknown 06/02/20 Physical Exam: PE: Constitutional: Well developed, well nourished, no acute distress, non-toxic appearance HENT: Normocephalic, atraumatic Eyes: PERRL, EOMI, conjunctiva normal, no discharge Neck: Normal range of motion, no tenderness, supple Lungs & Thorax: No respiratory distress, equal chest rise and fall Abdomen: Soft, no tenderness Skin: Warm, dry, no erythema, no rash Back: No tenderness, no CVA tenderness Extremities: No tenderness, ROM intact, no edema Neurologic: Alert and oriented X 3, normal motor function, normal sensory funct ion, no focal deficits noted Psychologic: Affect normal, judgment normal EKG: EKG: [] Radiology/Procedures: Radiology/Procedures: [] Heart Score: C/O Chest Pain: N/A Course & Med Decision Making: Course & Med Decision Making Patient stable for discharge with outpatient follow-up with PCP/neurologist. Discussed findings and plan with patient and spouse, who acknowledge unders tanding and agreement. Lashanda Disclaimer: Lashanda Disclaimer: This electronic medical record was generated, in whole or in part, using a voice recognition dictation system. Departure Departure: Impression: Primary Impression: Chronic headache Qualified Codes: R51.9 - Headache, unspecified; G89.29 - Other chronic pain Disposition: HOME / SELF CARE / HOMELESS Condition: STABLE Referrals: YELENA MONTESINOS (PCP) Patient Instructions: Headache, FAQs, Recurrent Migraine Headache, [id number] Additional Instructions: Please follow closely with your doctors for further evaluation and treatment. Scripts Ondansetron (ONDANSETRON ODT) 4 Mg Tab.rapdis 1 TAB PO PRN Q6-8HRS PRN for NAUSEA, #16 TAB Prov: FELICIA ELI DO 04/17/21 Butalb/Acetaminophen/Caffeine ([id number] 50-325-40) 1 Each Tablet 1 EACH PO Q6HRS PRN for HEADACHE, #14 TAB Prov: FELICIA ELI DO 04/17/21 FELICIA ELI DO Apr 17, 2021 19:07
[2021-04-17] MEDS ORDERED: KETOROLAC 30 MG/ML VIAL. IM ONE (19:15)
[2021-04-17] MEDS ORDERED: BUTALB/APAP/CAFEIN 50/325/40MG TABLET. PO ONE (19:15)
[2021-04-17] MEDS ORDERED: ONDANSETRON ODT 4 MG TAB.RAPDIS PO ONE (19:15)
== END 2021-04-17 19:25 | disposition home or self-care (01) ==
LOC: ER 18:39
DX: R51.9 Headache, unspecified (principal); I10 Essential (primary) hypertension; Z88.8 Allergy status to other drugs, medicaments and biological substances; Z90.49 Acquired absence of other specified parts of digestive tract; Z90.710 Acquired absence of both cervix and uterus
CPT/HCPCS: 96372; 99283; J1885; Q0162

== ENCOUNTER → 2021-06-12 | Outpatient (CLI) | payer MEDICARE ==
[~2021-06-12] MED LIST changes: +BUTA1TAB23 PO; +IOHEXOL 350 MG/ML 100 ML VIAL. IV ONE; +ONDA4TAB12 PO
--- NOTE | 2021-06-13 08:57 | RAD ---
EXAM: 1. CTA HEAD WITH AND WITHOUT CONTRAST. 2. CTA NECK WITH AND WITHOUT CONTRAST. HISTORY: Chronic migraine, recent hospitalization for one month. TECHNIQUE: Computed tomographic angiography of the head and neck was performed before and after the i ntravenous administration of 75 mL of Omnipaque 350. Three-dimensional reconstructions were also perf ormed. One or more of the following individualized dose reduction techniques were utilized for this examinat ion: 1. Automated exposure control. 2. Adjustment of the mA and/or kV according to patient size. 3. Use of iterative reconstruction technique. COMPARISON: CT head without contrast from 03/18/2021. FINDINGS: Angiographic findings: The aortic arch has a typical branching pattern. There is no arch vessel stenosis. Both common carotid arteries are patent without stenosis. Both internal carotid arteries are patent w ithout stenosis. The external carotid systems are patent. The vertebral arteries are patent. The basilar artery is patent. Both posterior cerebral arteries are patent. The posterior communicatin g arteries are visualized. The intracranial internal carotid arteries demonstrate no stenosis. The middle cerebral arteries are patent. The anterior cerebral arteries are patent. The anterior communicating artery is visualized. Nonangiographic findings: There is no intracranial hemorrhage. Dill-white differentiation is preserved. The ventricles are norm al in size and position. Previously seen mildly enhancing nodule in the right right occipital region is redemonstrated The paranasal sinuses appear clear. The orbits are unremarkable. The temporal bones are unremarkable. Bone windows reveal no suspicious lesions. The lung apices demonstrate no acute abnormality. The parotid glands and submandibular glands are unremarkable. The thyroid gland demonstrates no suspi cious lesions. There are no laryngeal or pharyngeal masses. Multiple enlarged bilateral neck lymph nodes are seen, e tiology unclear IMPRESSION: 1. Essentially unremarkable CT angiogram head and neck. 2. Multiple enlarged bilateral neck lymph nodes, etiology unclear. Correlate with the history of syst emic disease. PQRS Compliance Statement - Stenosis calculations for CT, MR and conventional angiography are based u ned measurement of the distal ICA diameter in accordance with the NASCET methodology. Stenosis calcu lations for carotid ultrasound studies are derived from validated velocity criteria which are known t o correlate with the NASCET methodology. Electronically signed by: Hermila Stratton MD (06/13/2021 8:54 AM) [facility]
== END ==
LOC: CT 12:44
PROVIDERS: ATTEND Nurse Practitioner Family
DX: G43.709 Chronic migraine without aura, not intractable, without status migrainosus (principal)
CPT/HCPCS: 70496; 70498; Q9967